=== PATIENT | female | born 1965 | race African-American/Black ===

== ENCOUNTER 2018-01-29 16:20 | Inpatient (IN) ==
[2018-01-29] MEDS ORDERED: SODIUM CHLORIDE 0.9% 1,000 ML IV STA (16:25)
[2018-01-29 17:01] LABS: Basophils % 0.3 % (0.0-0.8); Eosinophils % 0.3 % (0.00-10.9); Hemoglobin 13.1 GM/DL (12.0-16.0); Immature Granulocytes % 0.8 %; Immature Granulocytes Absolute 0.06 #; Lymphocytes # 1.4 10*3/uL (1.4-4.0); Lymphocytes % 17.6 % (21.3-54.2); Mean Corpuscular HGB Conc 33.6 GM/DL (32-36); Mean Corpuscular Hemoglobin 29 PG (27-34); Mean Corpuscular Volume 86.9 FL (87-102); Mean Platelet Volume 9.3 FL (9.6-12.0); Monocytes # 0.5 10*3/uL (0.11-0.8); Monocytes % 6.6 % (1.7-12.7); Neutrophils # 5.7 10*3/uL (1.4-7.4); Neutrophils % 74.4 % (38.7-73.9); Platelet Count 313 T/CUMM (130-400); Red Blood Count 4.49 MC/CUMM (3.8-5.5); Red Cell Distribution Width 12.7 % (9.3-17.3); White Blood Count 7.7 T/CUMM (4-12)
[2018-01-29 17:07] LABS: PT Patient Result 10.3 SECS; Partial Thromboplastin Time 24.7 SECS (0-40)
[2018-01-29] MEDS: DEXTROSE 5% NACL 0.45% 1,000 ML IV SCH (17:14)
[2018-01-29 17:15] LABS: Apearance,Urine CLEAR (Clear); Bacteria,Urine Occasional /HPF (Few); Barbiturates Screen,Urine Negative (Negative); Benzodiazepines Screen,Urine Negative (Negative); Bilirubin,Urine Negative (Negative); Blood, Urine Negative (Negative); Cannabinoid Screen,Urine Negative (Negative); Glucose,Urine (UA) Negative (Negative); Hyaline Casts,Urine 3 /LPF (0-3); Ketones,Urine Negative (Negative); Nitrite,Urine Negative (Negative); Opiate Screen,Urine Negative (Negative); Phencyclidine Screen,Urine Negative (Negative); Protein,Urine Negative; RBC,Urine 1 /HPF (0-4); Urine Color Yellow (Yellow); Urine Specific Gravity 1.009 (1.001-1.035); Urine Urobilinogen < 2.0 EU/DL (0.2-1.0); WBC,Urine 1 /HPF (0-6)
[2018-01-29 17:20] LABS: Alanine Aminotransferase 27 U/L (13-56); Alkaline Phosphatase 57 U/L (45-117); Aspartate Amino Transferase 30 U/L (0-37); Bilirubin,Total < 0.39 MG/DL (0.2-1.0); Blood Urea Nitrogen 16 MG/DL (7-18); Calcium 9.8 MG/DL (8.5-10.1); Glucose 140 MG/DL (74-106); Osmolality,Calculated 279.5 MOS/KG (273-304); Potassium 4.6 MMOL/L (3.5-5.1); Sodium 139 MMOL/L (136-145); Total Protein 7.2 G/DL (6.4-8.3)
[2018-01-29 18:52] LABS: Risk Ratio 1.88; Thyroid Stimulating Hormone 1.58 uIU/ml (0.358-3.74)
[2018-01-29] MEDS ORDERED: ALBUTEROL 2.5 MG/3 ML NEB RESP TX PRN (18:52)
[2018-01-29] MEDS ORDERED: PROMETHAZINE 25 MG TABLET PO PRN (18:52)
[2018-01-29] MEDS ORDERED: ACETAMINOPHEN 650 MG SUPP RECTAL PRN (18:52)
[2018-01-29] MEDS ORDERED: ALBUTEROL/IPRATROPIUM 3 ML NEB RESP TX PRN (18:52)
[2018-01-29] MEDS ORDERED: DEXTROSE 50% 25 GM/50 ML VIAL IV PRN (19:19)
[2018-01-29] MEDS ORDERED: ASPIRIN 300 MG SUPP RECTAL STA (19:20)
[2018-01-29] MEDS: PANTOPRAZOLE 40 MG VIAL IV SCH (20:57)
[2018-01-29] MEDS: ATORVASTATIN 40 MG TABLET PO SCH (20:57)
[2018-01-29] MEDS: hydrALAZINE 20 MG/1 ML VIAL IV PRN (21:01)
[2018-01-30 05:22] LABS: Basophils % 0.3 % (0.0-0.8); Eosinophils % 0.4 % (0.00-10.9); Hematocrit 33.7 VOL% (35.7-47.0); Hemoglobin 11.3 GM/DL (12.0-16.0); Immature Granulocytes % 0.8 %; Immature Granulocytes Absolute 0.06 #; Lymphocytes # 1.3 10*3/uL (1.4-4.0); Lymphocytes % 18.5 % (21.3-54.2); Mean Corpuscular HGB Conc 33.5 GM/DL (32-36); Mean Corpuscular Hemoglobin 29 PG (27-34); Mean Corpuscular Volume 85.8 FL (87-102); Mean Platelet Volume 10.2 FL (9.6-12.0); Monocytes # 0.5 10*3/uL (0.11-0.8); Monocytes % 7.6 % (1.7-12.7); Neutrophils # 5.1 10*3/uL (1.4-7.4); Neutrophils % 72.4 % (38.7-73.9); Platelet Count 278 T/CUMM (130-400); Red Blood Count 3.93 MC/CUMM (3.8-5.5); Red Cell Distribution Width 12.9 % (9.3-17.3); White Blood Count 7.1 T/CUMM (4-12)
[2018-01-30] MEDS: DEXTROSE 5% NACL 0.45% 1,000 ML IV SCH ×3 (05:40→23:32)
[2018-01-30 05:48] LABS: Eosinophils 1 % (0-10); Hypochromasia 1+; Lymphocytes 18 % (20-55); Segmented Neutrophils 70 % (50-85); Total Cells Counted 100
[2018-01-30 05:49] LABS: Microcytosis 1+; Platelet Estimate Normal
[2018-01-30 06:05] LABS: Alanine Aminotransferase 26 U/L (13-56); Albumin 2.4 G/DL (3.4-5.0); Alkaline Phosphatase 48 U/L (45-117); Aspartate Amino Transferase 29 U/L (0-37); Bilirubin,Total < 0.39 MG/DL (0.2-1.0); Blood Urea Nitrogen 14 MG/DL (7-18); Calcium 8.9 MG/DL (8.5-10.1); Glucose 128 MG/DL (74-106); Osmolality,Calculated 279.5 MOS/KG (273-304); Potassium 4.4 MMOL/L (3.5-5.1); Sodium 139 MMOL/L (136-145); Total Protein 5.9 G/DL (6.4-8.3)
[2018-01-30] MEDS: ERYTHROMYCIN 0.5% OPHT OINT 3.5 GM TUBE LEFT EYE SCH ×5 (07:16→21:00)
[2018-01-30] MEDS ORDERED: ASPIRIN 300 MG SUPP RECTAL SCH (09:00)
[2018-01-30] MEDS: ASPIRIN CHEW 81 MG TABLET PO SCH (10:39)
[2018-01-30] MEDS ORDERED: MAGNESIUM SULF RIDER 4 GM in PREMIX 1 EACH IV ONE (14:34)
[2018-01-30] MEDS: PANTOPRAZOLE 40 MG VIAL IV SCH (20:55)
[2018-01-30] MEDS: ATORVASTATIN 40 MG TABLET PO SCH (20:55)
[2018-01-31 03:59] LABS: Basophils % 0.5 % (0.0-0.8); Eosinophils # 0.2 10*3/uL (0.0-0.87); Eosinophils % 2.8 % (0.00-10.9); Hematocrit 32.6 VOL% (35.7-47.0); Hemoglobin 10.7 GM/DL (12.0-16.0); Immature Granulocytes % 0.5 %; Immature Granulocytes Absolute 0.03 #; Lymphocytes # 1.5 10*3/uL (1.4-4.0); Lymphocytes % 23.5 % (21.3-54.2); Mean Corpuscular HGB Conc 32.8 GM/DL (32-36); Mean Corpuscular Hemoglobin 29 PG (27-34); Mean Corpuscular Volume 88.1 FL (87-102); Mean Platelet Volume 9.5 FL (9.6-12.0); Monocytes # 0.6 10*3/uL (0.11-0.8); Monocytes % 9.4 % (1.7-12.7); Neutrophils # 4.1 10*3/uL (1.4-7.4); Neutrophils % 63.3 % (38.7-73.9); Platelet Count 241 T/CUMM (130-400); White Blood Count 6.5 T/CUMM (4-12)
[2018-01-31 04:18] LABS: Calcium 8.9 MG/DL (8.5-10.1); Osmolality,Calculated 279.5 MOS/KG (273-304); Potassium 4.2 MMOL/L (3.5-5.1)
[2018-01-31] MEDS: ASPIRIN CHEW 81 MG TABLET PO SCH (09:00)
[2018-01-31] MEDS: ERYTHROMYCIN 0.5% OPHT OINT 3.5 GM TUBE LEFT EYE SCH ×4 (09:02→22:10)
[2018-01-31] MEDS: DEXTROSE 5% NACL 0.45% 1,000 ML IV SCH ×2 (11:34→22:09)
[2018-01-31 11:47] LABS: Thyroglob. AB < 1.8 IU/mL (<4.0)
[2018-01-31 17:21] LABS: Glucose,CSF 87 MG/DL (40-70)
[2018-01-31 17:49] LABS: Lymphocytes,CSF 100 %
[2018-01-31 17:50] LABS: Appearance,CSF Clear; Red Blood Cell,CSF 5 C/CUMM; White Blood Cell,CSF 2 C/CUMM
[2018-01-31] MEDS ORDERED: DIVALPROEX 500 MG TABLET PO SCH (21:00)
[2018-01-31] MEDS: ATORVASTATIN 40 MG TABLET PO SCH (22:10)
[2018-01-31] MEDS: PANTOPRAZOLE 40 MG VIAL IV SCH (22:10)
[2018-01-31] MEDS: hydrALAZINE 20 MG/1 ML VIAL IV PRN (23:54)
[2018-02-01 04:00] LABS: Basophils % 0.5 % (0.0-0.8); Eosinophils # 0.1 10*3/uL (0.0-0.87); Eosinophils % 2.4 % (0.00-10.9); Hematocrit 32.4 VOL% (35.7-47.0); Hemoglobin 10.7 GM/DL (12.0-16.0); Immature Granulocytes % 0.3 %; Immature Granulocytes Absolute 0.02 #; Lymphocytes # 1.6 10*3/uL (1.4-4.0); Lymphocytes % 27.1 % (21.3-54.2); Mean Corpuscular Hemoglobin 28 PG (27-34); Mean Corpuscular Volume 85.9 FL (87-102); Mean Platelet Volume 10.8 FL (9.6-12.0); Monocytes # 0.5 10*3/uL (0.11-0.8); Neutrophils # 3.6 10*3/uL (1.4-7.4); Neutrophils % 60.7 % (38.7-73.9); Red Blood Count 3.77 MC/CUMM (3.8-5.5); Red Cell Distribution Width 12.7 % (9.3-17.3); White Blood Count 5.9 T/CUMM (4-12)
[2018-02-01] MEDS: DEXTROSE 5% NACL 0.45% 1,000 ML IV SCH ×2 (04:01→18:14)
[2018-02-01 04:09] LABS: Platelet Count 179 T/CUMM (130-400)
[2018-02-01 04:47] LABS: Albumin 2.4 G/DL (3.4-5.0); Bilirubin,Total 0.5 MG/DL (0.2-1.0); Calcium 9.2 MG/DL (8.5-10.1); Osmolality,Calculated 281.3 MOS/KG (273-304); Potassium 4.2 MMOL/L (3.5-5.1); Total Protein 5.8 G/DL (6.4-8.3)
[2018-02-01 05:00] LABS: Platelet Estimate Normal
[2018-02-01 05:01] LABS: Hypochromasia Slight; Ovalocytes Few
[2018-02-01] MEDS: ERYTHROMYCIN 0.5% OPHT OINT 3.5 GM TUBE LEFT EYE SCH ×4 (09:40→20:28)
[2018-02-01] MEDS: VALPROIC ACID 250 MG/5 ML UDCUP PO SCH ×2 (09:40→20:28)
[2018-02-01] MEDS: ASPIRIN CHEW 81 MG TABLET PO SCH (09:40)
[2018-02-01] MEDS: ATORVASTATIN 40 MG TABLET PO SCH (20:28)
[2018-02-01] MEDS: PANTOPRAZOLE 40 MG VIAL IV SCH (20:29)
[2018-02-02] MEDS: DEXTROSE 5% NACL 0.45% 1,000 ML IV SCH ×2 (00:47→17:15)
[2018-02-02] MEDS ORDERED: LABETALOL 100 MG/20 ML VIAL IV ONE (07:38)
[2018-02-02] MEDS ORDERED: LORazepam 2 MG/1 ML VIAL IV PRN (07:38)
[2018-02-02] MEDS: VALPROIC ACID 250 MG/5 ML UDCUP PO SCH ×2 (08:13→20:11)
[2018-02-02] MEDS: ASPIRIN CHEW 81 MG TABLET PO SCH (08:13)
[2018-02-02] MEDS: ERYTHROMYCIN 0.5% OPHT OINT 3.5 GM TUBE LEFT EYE SCH ×4 (08:14→20:12)
[2018-02-02] MEDS: MORPHINE 4 MG/1 ML VIAL IV PRN ×2 (09:18→17:56)
[2018-02-02] MEDS: PANTOPRAZOLE 40 MG VIAL IV SCH (20:11)
[2018-02-02] MEDS: ATORVASTATIN 40 MG TABLET PO SCH (20:11)
[2018-02-03 03:53] LABS: Basophils % 0.2 % (0.0-0.8); Eosinophils # 0.3 10*3/uL (0.0-0.87); Eosinophils % 3.1 % (0.00-10.9); Hematocrit 32.4 VOL% (35.7-47.0); Hemoglobin 10.3 GM/DL (12.0-16.0); Immature Granulocytes % 0.2 %; Immature Granulocytes Absolute 0.02 #; Lymphocytes # 1.3 10*3/uL (1.4-4.0); Lymphocytes % 16.1 % (21.3-54.2); Mean Corpuscular HGB Conc 31.8 GM/DL (32-36); Mean Corpuscular Hemoglobin 28 PG (27-34); Mean Corpuscular Volume 89.3 FL (87-102); Mean Platelet Volume 9.8 FL (9.6-12.0); Monocytes # 0.8 10*3/uL (0.11-0.8); Monocytes % 9.9 % (1.7-12.7); Neutrophils # 5.7 10*3/uL (1.4-7.4); Neutrophils % 70.5 % (38.7-73.9); Platelet Count 212 T/CUMM (130-400); Red Blood Count 3.63 MC/CUMM (3.8-5.5); Red Cell Distribution Width 12.9 % (9.3-17.3); White Blood Count 8.1 T/CUMM (4-12)
[2018-02-03 04:33] LABS: Calcium 9.3 MG/DL (8.5-10.1); Osmolality,Calculated 285.5 MOS/KG (273-304); Potassium 4.5 MMOL/L (3.5-5.1); Prealbumin 21.8 MG/DL (20-40)
[2018-02-03] MEDS: MORPHINE 4 MG/1 ML VIAL IV PRN (05:35)
[2018-02-03] MEDS: ASPIRIN CHEW 81 MG TABLET PO SCH (09:18)
[2018-02-03] MEDS: VALPROIC ACID 250 MG/5 ML UDCUP PO SCH ×2 (09:18→21:03)
[2018-02-03] MEDS: ERYTHROMYCIN 0.5% OPHT OINT 3.5 GM TUBE LEFT EYE SCH ×4 (09:19→21:04)
[2018-02-03] MEDS: PANTOPRAZOLE 40 MG VIAL IV SCH (21:03)
[2018-02-03] MEDS: ATORVASTATIN 40 MG TABLET PO SCH (21:04)
[2018-02-04] MEDS: hydrALAZINE 20 MG/1 ML VIAL IV PRN (00:14)
[2018-02-04] MEDS: MORPHINE 4 MG/1 ML VIAL IV PRN (00:39)
[2018-02-04] MEDS: VALPROIC ACID 250 MG/5 ML UDCUP PO SCH ×2 (08:40→20:59)
[2018-02-04] MEDS: ASPIRIN CHEW 81 MG TABLET PO SCH (08:40)
[2018-02-04] MEDS: ERYTHROMYCIN 0.5% OPHT OINT 3.5 GM TUBE LEFT EYE SCH ×4 (08:41→21:10)
[2018-02-04] MEDS ORDERED: FAMOTIDINE 8 MG/ML 50 ML/BOTTLE PER TUBE SCH (12:30)
[2018-02-04] MEDS: RANITIDINE 150 MG/10 ML 30 ML BOTTLE PER TUBE SCH ×2 (12:56→21:01)
[2018-02-04] MEDS: cloNIDine 0.1 MG TABLET PER TUBE PRN ×2 (16:03→20:59)
[2018-02-04] MEDS: ATORVASTATIN 40 MG TABLET PO SCH (21:02)
[2018-02-05 05:30] LABS: Basophils % 0.3 % (0.0-0.8); Eosinophils # 0.2 10*3/uL (0.0-0.87); Eosinophils % 3.2 % (0.00-10.9); Hematocrit 32.1 VOL% (35.7-47.0); Hemoglobin 10.9 GM/DL (12.0-16.0); Immature Granulocytes % 0.7 %; Immature Granulocytes Absolute 0.05 #; Lymphocytes # 1.2 10*3/uL (1.4-4.0); Lymphocytes % 15.5 % (21.3-54.2); Mean Corpuscular Hemoglobin 29 PG (27-34); Mean Corpuscular Volume 86.1 FL (87-102); Mean Platelet Volume 10.3 FL (9.6-12.0); Monocytes # 0.9 10*3/uL (0.11-0.8); Monocytes % 11.9 % (1.7-12.7); Neutrophils # 5.1 10*3/uL (1.4-7.4); Neutrophils % 68.4 % (38.7-73.9); Platelet Count 218 T/CUMM (130-400); Red Blood Count 3.73 MC/CUMM (3.8-5.5); Red Cell Distribution Width 12.6 % (9.3-17.3); White Blood Count 7.5 T/CUMM (4-12)
[2018-02-05 06:02] LABS: Calcium 9.6 MG/DL (8.5-10.1); Osmolality,Calculated 284.8 MOS/KG (273-304); Potassium 4.4 MMOL/L (3.5-5.1)
[2018-02-05] MEDS: RANITIDINE 150 MG/10 ML 30 ML BOTTLE PER TUBE SCH ×2 (09:18→20:54)
[2018-02-05] MEDS: VALPROIC ACID 250 MG/5 ML UDCUP PO SCH ×2 (09:18→20:55)
[2018-02-05] MEDS: ASPIRIN CHEW 81 MG TABLET PO SCH (09:18)
[2018-02-05] MEDS: amLODIPine 10 MG TABLET PO SCH (09:18)
[2018-02-05] MEDS: ERYTHROMYCIN 0.5% OPHT OINT 3.5 GM TUBE LEFT EYE SCH ×4 (09:19→20:54)
[2018-02-05 13:06] LABS: VDRL Spinal Fluid Negative (Negative)
[2018-02-05] MEDS: ATORVASTATIN 40 MG TABLET PO SCH (20:55)
[2018-02-06 07:27] LABS: Calcium 9.7 MG/DL (8.5-10.1); Osmolality,Calculated 288.4 MOS/KG (273-304); Potassium 3.8 MMOL/L (3.5-5.1)
[2018-02-06] MEDS: VALPROIC ACID 250 MG/5 ML UDCUP PO SCH ×2 (10:26→20:06)
[2018-02-06] MEDS: amLODIPine 10 MG TABLET PO SCH (10:26)
[2018-02-06] MEDS: ASPIRIN CHEW 81 MG TABLET PO SCH (10:27)
[2018-02-06] MEDS: RANITIDINE 150 MG/10 ML 30 ML BOTTLE PER TUBE SCH ×2 (10:27→20:07)
[2018-02-06] MEDS: ERYTHROMYCIN 0.5% OPHT OINT 3.5 GM TUBE LEFT EYE SCH ×4 (10:27→20:06)
[2018-02-06] MEDS: cloNIDine 0.1 MG TABLET PER TUBE PRN (20:06)
[2018-02-06] MEDS: ATORVASTATIN 40 MG TABLET PO SCH (20:06)
[2018-02-07 05:14] LABS: Basophils % 0.3 % (0.0-0.8); Eosinophils # 0.3 10*3/uL (0.0-0.87); Hematocrit 35.4 VOL% (35.7-47.0); Hemoglobin 11.7 GM/DL (12.0-16.0); Immature Granulocytes % 0.9 %; Immature Granulocytes Absolute 0.08 #; Lymphocytes # 1.3 10*3/uL (1.4-4.0); Lymphocytes % 14.9 % (21.3-54.2); Mean Corpuscular HGB Conc 33.1 GM/DL (32-36); Mean Corpuscular Hemoglobin 28 PG (27-34); Mean Corpuscular Volume 85.9 FL (87-102); Mean Platelet Volume 10.1 FL (9.6-12.0); Monocytes # 1.1 10*3/uL (0.11-0.8); Monocytes % 12.2 % (1.7-12.7); Neutrophils # 6.2 10*3/uL (1.4-7.4); Neutrophils % 68.7 % (38.7-73.9); Platelet Count 257 T/CUMM (130-400); Red Blood Count 4.12 MC/CUMM (3.8-5.5); Red Cell Distribution Width 12.5 % (9.3-17.3)
[2018-02-07 05:25] LABS: PT Patient Result 10.9 SECS
[2018-02-07] MEDS ORDERED: ceFAZolin 1,000 MG in SYRINGE 1 EACH IV ONE (07:00)
[2018-02-07] MEDS ORDERED: ETOMIDATE 20 MG/10 ML VIAL IV ONE (10:00)
[2018-02-07] MEDS ORDERED: PROPOFOL 200 MG/20 ML VIAL IV ONE (10:00)
[2018-02-07] MEDS ORDERED: ONDANSETRON 4 MG/2 ML VIAL ONE (10:00)
[2018-02-07] MEDS ORDERED: LIDOCAINE 2% 5 ML VIAL ONE (10:00)
[2018-02-07] MEDS: RANITIDINE 150 MG/10 ML 30 ML BOTTLE PER TUBE SCH ×2 (10:34→20:28)
[2018-02-07] MEDS: amLODIPine 10 MG TABLET PO SCH (10:34)
[2018-02-07] MEDS: ASPIRIN CHEW 81 MG TABLET PO SCH (10:34)
[2018-02-07] MEDS: VALPROIC ACID 250 MG/5 ML UDCUP PO SCH ×2 (10:34→20:27)
[2018-02-07] MEDS: ERYTHROMYCIN 0.5% OPHT OINT 3.5 GM TUBE LEFT EYE SCH ×4 (10:38→20:28)
[2018-02-07] MEDS: ATORVASTATIN 40 MG TABLET PO SCH (20:28)
[2018-02-08] MEDS: ASPIRIN CHEW 81 MG TABLET PO SCH (09:44)
[2018-02-08] MEDS: VALPROIC ACID 250 MG/5 ML UDCUP PO SCH ×2 (09:45→20:47)
[2018-02-08] MEDS: RANITIDINE 150 MG/10 ML 30 ML BOTTLE PER TUBE SCH ×2 (09:45→20:47)
[2018-02-08] MEDS: amLODIPine 10 MG TABLET PO SCH (09:45)
[2018-02-08] MEDS: ERYTHROMYCIN 0.5% OPHT OINT 3.5 GM TUBE LEFT EYE SCH ×4 (09:45→20:47)
[2018-02-08] MEDS: ATORVASTATIN 40 MG TABLET PO SCH (20:47)
[2018-02-09] MEDS ORDERED: DEXTROSE 50% 25 GM/50 ML VIAL IV PRN (08:25)
[2018-02-09] MEDS ORDERED: GLUCAGON 1 MG VIAL IM PRN (08:25)
[2018-02-09] MEDS: cloNIDine 0.1 MG TABLET PER TUBE PRN (09:39)
[2018-02-09] MEDS: ERYTHROMYCIN 0.5% OPHT OINT 3.5 GM TUBE LEFT EYE SCH ×4 (09:40→20:30)
[2018-02-09] MEDS: VALPROIC ACID 250 MG/5 ML UDCUP PO SCH ×2 (09:40→20:30)
[2018-02-09] MEDS: ASPIRIN CHEW 81 MG TABLET PO SCH (09:40)
[2018-02-09] MEDS: amLODIPine 10 MG TABLET PO SCH (09:40)
[2018-02-09] MEDS: RANITIDINE 150 MG/10 ML 30 ML BOTTLE PER TUBE SCH ×2 (13:18→20:32)
[2018-02-09] MEDS: ATORVASTATIN 40 MG TABLET PO SCH (20:31)
[2018-02-10 05:46] LABS: Prealbumin 19.2 MG/DL (20-40)
[2018-02-10] MEDS: VALPROIC ACID 250 MG/5 ML UDCUP PO SCH ×2 (08:22→20:18)
[2018-02-10] MEDS: RANITIDINE 150 MG/10 ML 30 ML BOTTLE PER TUBE SCH ×2 (08:23→20:21)
[2018-02-10] MEDS: ASPIRIN CHEW 81 MG TABLET PO SCH (08:23)
[2018-02-10] MEDS: amLODIPine 10 MG TABLET PO SCH (08:23)
[2018-02-10] MEDS: ERYTHROMYCIN 0.5% OPHT OINT 3.5 GM TUBE LEFT EYE SCH ×4 (08:24→20:21)
[2018-02-10] MEDS ORDERED: TUBERCULIN SKIN TEST 0.1 ML SYRINGE INTRADERM ONE (12:42)
[2018-02-10] MEDS: INSULIN REGULAR 100 UNIT/ML SUBCUT SCH ×2 (12:48→18:18)
[2018-02-10] MEDS: ZINC OXIDE PASTE 113 GM TUBE TOP SCH ×2 (18:22→20:21)
[2018-02-10] MEDS: ATORVASTATIN 40 MG TABLET PO SCH (20:20)
[2018-02-10 20:26] LABS: West Nile Virus Ab, IgG, CSF Negative (Negative); West Nile Virus Ab, IgM, CSF Negative (Negative)
[2018-02-11] MEDS: INSULIN REGULAR 100 UNIT/ML SUBCUT SCH ×4 (00:43→18:01)
[2018-02-11] MEDS: VALPROIC ACID 250 MG/5 ML UDCUP PO SCH ×2 (09:13→20:26)
[2018-02-11] MEDS: ZINC OXIDE PASTE 113 GM TUBE TOP SCH ×2 (09:13→20:26)
[2018-02-11] MEDS: ASPIRIN CHEW 81 MG TABLET PO SCH (09:13)
[2018-02-11] MEDS: amLODIPine 10 MG TABLET PO SCH (09:13)
[2018-02-11] MEDS: RANITIDINE 150 MG/10 ML 30 ML BOTTLE PER TUBE SCH ×2 (09:13→20:30)
[2018-02-11] MEDS: ERYTHROMYCIN 0.5% OPHT OINT 3.5 GM TUBE LEFT EYE SCH ×4 (09:14→20:27)
[2018-02-11] MEDS: metFORMIN 500 MG TABLET PO SCH (18:02)
[2018-02-11] MEDS: ATORVASTATIN 40 MG TABLET PO SCH (20:26)
[2018-02-12] MEDS: INSULIN REGULAR 100 UNIT/ML SUBCUT SCH ×4 (00:21→17:03)
[2018-02-12] MEDS: ASPIRIN CHEW 81 MG TABLET PO SCH (08:56)
[2018-02-12] MEDS: VALPROIC ACID 250 MG/5 ML UDCUP PO SCH ×2 (08:57→20:37)
[2018-02-12] MEDS: ZINC OXIDE PASTE 113 GM TUBE TOP SCH ×2 (08:57→20:37)
[2018-02-12] MEDS: metFORMIN 500 MG TABLET PO SCH ×2 (08:57→17:03)
[2018-02-12] MEDS: ERYTHROMYCIN 0.5% OPHT OINT 3.5 GM TUBE LEFT EYE SCH ×4 (08:57→20:37)
[2018-02-12] MEDS: amLODIPine 10 MG TABLET PO SCH (08:57)
[2018-02-12] MEDS: RANITIDINE 150 MG/10 ML 30 ML BOTTLE PER TUBE SCH ×2 (08:57→21:40)
[2018-02-12] MEDS: ATORVASTATIN 40 MG TABLET PO SCH (20:37)
[2018-02-12] MEDS: cloNIDine 0.1 MG TABLET PER TUBE PRN (21:40)
[2018-02-13] MEDS: INSULIN REGULAR 100 UNIT/ML SUBCUT SCH ×4 (01:47→19:05)
[2018-02-13 06:09] LABS: Basophils # 0.1 10*3/uL (0.0-0.2); Basophils % 0.6 % (0.0-0.8); Eosinophils # 0.3 10*3/uL (0.0-0.87); Eosinophils % 2.2 % (0.00-10.9); Hematocrit 36.8 VOL% (35.7-47.0); Hemoglobin 11.6 GM/DL (12.0-16.0); Immature Granulocytes % 4.4 %; Immature Granulocytes Absolute 0.49 #; Lymphocytes % 17.5 % (21.3-54.2); Mean Corpuscular HGB Conc 31.5 GM/DL (32-36); Mean Corpuscular Hemoglobin 29 PG (27-34); Mean Corpuscular Volume 90.9 FL (87-102); Mean Platelet Volume 10.7 FL (9.6-12.0); Monocytes # 1.1 10*3/uL (0.11-0.8); Monocytes % 9.9 % (1.7-12.7); Neutrophils # 7.4 10*3/uL (1.4-7.4); Neutrophils % 65.4 % (38.7-73.9); Platelet Count 256 T/CUMM (130-400); Red Blood Count 4.05 MC/CUMM (3.8-5.5); Red Cell Distribution Width 12.1 % (9.3-17.3); White Blood Count 11.2 T/CUMM (4-12)
[2018-02-13 06:37] LABS: Calcium 9.7 MG/DL (8.5-10.1); Osmolality,Calculated 311.8 MOS/KG (273-304); Potassium 4.7 MMOL/L (3.5-5.1)
[2018-02-13] MEDS: VALPROIC ACID 250 MG/5 ML UDCUP PO SCH ×2 (09:55→21:25)
[2018-02-13] MEDS: amLODIPine 10 MG TABLET PO SCH (09:55)
[2018-02-13] MEDS: ASPIRIN CHEW 81 MG TABLET PO SCH (09:55)
[2018-02-13] MEDS: ZINC OXIDE PASTE 113 GM TUBE TOP SCH ×2 (09:56→21:26)
[2018-02-13] MEDS: metFORMIN 500 MG TABLET PO SCH ×2 (09:56→18:15)
[2018-02-13] MEDS: ERYTHROMYCIN 0.5% OPHT OINT 3.5 GM TUBE LEFT EYE SCH ×4 (09:57→21:25)
[2018-02-13] MEDS: RANITIDINE 150 MG/10 ML 30 ML BOTTLE PER TUBE SCH ×2 (09:58→21:25)
[2018-02-13] MEDS: DESITIN 4OZ/NYSTATIN 15 GRAM MIXTURE PASTE TOP SCH ×2 (14:17→21:25)
[2018-02-13] MEDS: ATORVASTATIN 40 MG TABLET PO SCH (21:25)
[2018-02-14] MEDS: INSULIN REGULAR 100 UNIT/ML SUBCUT SCH ×4 (02:04→17:48)
[2018-02-14 06:04] LABS: Calcium 9.5 MG/DL (8.5-10.1); Osmolality,Calculated 321.8 MOS/KG (273-304); Potassium 5.2 MMOL/L (3.5-5.1)
[2018-02-14] MEDS ORDERED: INSULIN GLARGINE 100 UNIT/ML SUBCUT SCH (09:00)
[2018-02-14] MEDS: DESITIN 4OZ/NYSTATIN 15 GRAM MIXTURE PASTE TOP SCH ×2 (10:25→21:07)
[2018-02-14] MEDS: ERYTHROMYCIN 0.5% OPHT OINT 3.5 GM TUBE LEFT EYE SCH ×4 (10:26→21:06)
[2018-02-14] MEDS: RANITIDINE 150 MG/10 ML 30 ML BOTTLE PER TUBE SCH ×2 (10:26→21:07)
[2018-02-14] MEDS: ASPIRIN CHEW 81 MG TABLET PO SCH (10:26)
[2018-02-14] MEDS: amLODIPine 10 MG TABLET PO SCH (10:27)
[2018-02-14] MEDS: VALPROIC ACID 250 MG/5 ML UDCUP PO SCH ×2 (10:27→21:06)
[2018-02-14] MEDS: metFORMIN 500 MG TABLET PO SCH ×2 (10:27→17:48)
[2018-02-14] MEDS: ZINC OXIDE PASTE 113 GM TUBE TOP SCH ×2 (10:27→23:22)
[2018-02-14] MEDS: ATORVASTATIN 40 MG TABLET PO SCH (21:06)
[2018-02-15] MEDS: INSULIN REGULAR 100 UNIT/ML SUBCUT SCH ×4 (01:23→18:24)
[2018-02-15 06:39] LABS: Calcium 10.1 MG/DL (8.5-10.1); Osmolality,Calculated 318.7 MOS/KG (273-304)
[2018-02-15] MEDS: INSULIN GLARGINE 100 UNIT/ML SUBCUT SCH (12:16)
[2018-02-15] MEDS: VALPROIC ACID 250 MG/5 ML UDCUP PO SCH ×2 (12:16→20:28)
[2018-02-15] MEDS: ASPIRIN CHEW 81 MG TABLET PO SCH (12:16)
[2018-02-15] MEDS: amLODIPine 10 MG TABLET PO SCH (12:16)
[2018-02-15] MEDS: metFORMIN 500 MG TABLET PO SCH ×2 (12:17→18:23)
[2018-02-15] MEDS: DESITIN 4OZ/NYSTATIN 15 GRAM MIXTURE PASTE TOP SCH ×2 (12:21→20:28)
[2018-02-15] MEDS: ERYTHROMYCIN 0.5% OPHT OINT 3.5 GM TUBE LEFT EYE SCH ×4 (12:21→20:29)
[2018-02-15] MEDS: RANITIDINE 150 MG/10 ML 30 ML BOTTLE PER TUBE SCH ×2 (12:22→20:28)
[2018-02-15] MEDS: ZINC OXIDE PASTE 113 GM TUBE TOP SCH ×2 (15:12→20:28)
[2018-02-15] MEDS: ATORVASTATIN 40 MG TABLET PO SCH (20:28)
[2018-02-16] MEDS: INSULIN REGULAR 100 UNIT/ML SUBCUT SCH ×4 (00:03→19:12)
[2018-02-16 04:17] LABS: Basophils # 0.1 10*3/uL (0.0-0.2); Basophils % 0.6 % (0.0-0.8); Eosinophils # 0.3 10*3/uL (0.0-0.87); Eosinophils % 1.9 % (0.00-10.9); Hematocrit 34.6 VOL% (35.7-47.0); Hemoglobin 11.1 GM/DL (12.0-16.0); Immature Granulocytes % 3.8 %; Lymphocytes # 2.2 10*3/uL (1.4-4.0); Lymphocytes % 16.6 % (21.3-54.2); Mean Corpuscular HGB Conc 32.1 GM/DL (32-36); Mean Corpuscular Hemoglobin 29 PG (27-34); Mean Corpuscular Volume 88.7 FL (87-102); Mean Platelet Volume 10.9 FL (9.6-12.0); Monocytes # 1.4 10*3/uL (0.11-0.8); Monocytes % 10.9 % (1.7-12.7); Neutrophils # 8.7 10*3/uL (1.4-7.4); Neutrophils % 66.2 % (38.7-73.9); Platelet Count 343 T/CUMM (130-400); Red Cell Distribution Width 12.6 % (9.3-17.3); White Blood Count 13.2 T/CUMM (4-12)
[2018-02-16] MEDS: ASPIRIN CHEW 81 MG TABLET PO SCH (09:47)
[2018-02-16] MEDS: INSULIN GLARGINE 100 UNIT/ML SUBCUT SCH (09:47)
[2018-02-16] MEDS: amLODIPine 10 MG TABLET PO SCH (09:48)
[2018-02-16] MEDS: RANITIDINE 150 MG/10 ML 30 ML BOTTLE PER TUBE SCH ×2 (09:48→20:44)
[2018-02-16] MEDS: DESITIN 4OZ/NYSTATIN 15 GRAM MIXTURE PASTE TOP SCH ×2 (09:48→20:44)
[2018-02-16] MEDS: ERYTHROMYCIN 0.5% OPHT OINT 3.5 GM TUBE LEFT EYE SCH ×3 (09:48→20:44)
[2018-02-16] MEDS: VALPROIC ACID 250 MG/5 ML UDCUP PO SCH ×2 (09:48→20:45)
[2018-02-16] MEDS: metFORMIN 500 MG TABLET PO SCH (09:48)
[2018-02-16] MEDS: ZINC OXIDE PASTE 113 GM TUBE TOP SCH ×2 (09:49→20:44)
[2018-02-16] MEDS: ATORVASTATIN 40 MG TABLET PO SCH (20:45)
[2018-02-17] MEDS: INSULIN REGULAR 100 UNIT/ML SUBCUT SCH ×4 (00:17→18:07)
[2018-02-17 05:40] LABS: Calcium 9.9 MG/DL (8.5-10.1); Osmolality,Calculated 314.1 MOS/KG (273-304); Potassium 4.8 MMOL/L (3.5-5.1)
[2018-02-17] MEDS: ZINC OXIDE PASTE 113 GM TUBE TOP SCH ×2 (08:30→20:21)
[2018-02-17] MEDS: ERYTHROMYCIN 0.5% OPHT OINT 3.5 GM TUBE LEFT EYE SCH ×4 (08:30→20:21)
[2018-02-17] MEDS: INSULIN GLARGINE 100 UNIT/ML SUBCUT SCH (08:31)
[2018-02-17] MEDS: DESITIN 4OZ/NYSTATIN 15 GRAM MIXTURE PASTE TOP SCH ×2 (08:31→20:19)
[2018-02-17] MEDS: amLODIPine 10 MG TABLET PO SCH (08:31)
[2018-02-17] MEDS: VALPROIC ACID 250 MG/5 ML UDCUP PO SCH ×2 (08:31→20:19)
[2018-02-17] MEDS: ASPIRIN CHEW 81 MG TABLET PO SCH (08:31)
[2018-02-17] MEDS: RANITIDINE 150 MG/10 ML 30 ML BOTTLE PER TUBE SCH ×2 (08:32→20:20)
[2018-02-17] MEDS: ATORVASTATIN 40 MG TABLET PO SCH (20:19)
[2018-02-18] MEDS: INSULIN REGULAR 100 UNIT/ML SUBCUT SCH ×4 (00:22→17:57)
[2018-02-18 05:15] LABS: Basophils # 0.1 10*3/uL (0.0-0.2); Basophils % 0.5 % (0.0-0.8); Eosinophils # 0.2 10*3/uL (0.0-0.87); Eosinophils % 1.5 % (0.00-10.9); Hematocrit 32.2 VOL% (35.7-47.0); Hemoglobin 10.3 GM/DL (12.0-16.0); Immature Granulocytes % 4.2 %; Immature Granulocytes Absolute 0.49 #; Lymphocytes # 1.8 10*3/uL (1.4-4.0); Lymphocytes % 15.3 % (21.3-54.2); Mean Corpuscular Hemoglobin 29 PG (27-34); Mean Corpuscular Volume 91.2 FL (87-102); Mean Platelet Volume 11.1 FL (9.6-12.0); Monocytes # 1.3 10*3/uL (0.11-0.8); Monocytes % 11.5 % (1.7-12.7); Neutrophils # 7.8 10*3/uL (1.4-7.4); Platelet Count 376 T/CUMM (130-400); Red Blood Count 3.53 MC/CUMM (3.8-5.5); Red Cell Distribution Width 12.1 % (9.3-17.3); White Blood Count 11.7 T/CUMM (4-12)
[2018-02-18 05:44] LABS: Osmolality,Calculated 306.3 MOS/KG (273-304); Potassium 4.5 MMOL/L (3.5-5.1)
[2018-02-18] MEDS: ASPIRIN CHEW 81 MG TABLET PO SCH (08:53)
[2018-02-18] MEDS: ERYTHROMYCIN 0.5% OPHT OINT 3.5 GM TUBE LEFT EYE SCH ×4 (08:54→20:01)
[2018-02-18] MEDS: VALPROIC ACID 250 MG/5 ML UDCUP PO SCH ×2 (08:54→20:02)
[2018-02-18] MEDS: RANITIDINE 150 MG/10 ML 30 ML BOTTLE PER TUBE SCH ×2 (08:54→20:02)
[2018-02-18] MEDS: amLODIPine 10 MG TABLET PO SCH (08:54)
[2018-02-18] MEDS: DESITIN 4OZ/NYSTATIN 15 GRAM MIXTURE PASTE TOP SCH ×2 (08:55→20:02)
[2018-02-18] MEDS: INSULIN GLARGINE 100 UNIT/ML SUBCUT SCH (08:55)
[2018-02-18] MEDS: ZINC OXIDE PASTE 113 GM TUBE TOP SCH ×2 (08:56→20:01)
[2018-02-18] MEDS: cloNIDine 0.1 MG TABLET PER TUBE PRN (11:34)
[2018-02-18] MEDS: ATORVASTATIN 40 MG TABLET PO SCH (20:02)
[2018-02-19] MEDS: INSULIN REGULAR 100 UNIT/ML SUBCUT SCH ×4 (00:52→20:04)
[2018-02-19 06:12] LABS: Calcium 8.9 MG/DL (8.5-10.1); Osmolality,Calculated 303.4 MOS/KG (273-304); Potassium 4.6 MMOL/L (3.5-5.1)
[2018-02-19] MEDS: VALPROIC ACID 250 MG/5 ML UDCUP PO SCH ×2 (08:56→22:44)
[2018-02-19] MEDS: ASPIRIN CHEW 81 MG TABLET PO SCH (08:56)
[2018-02-19] MEDS: INSULIN GLARGINE 100 UNIT/ML SUBCUT SCH (08:56)
[2018-02-19] MEDS: amLODIPine 10 MG TABLET PO SCH (08:56)
[2018-02-19] MEDS: DESITIN 4OZ/NYSTATIN 15 GRAM MIXTURE PASTE TOP SCH ×2 (08:57→22:42)
[2018-02-19] MEDS: ZINC OXIDE PASTE 113 GM TUBE TOP SCH ×2 (08:57→22:42)
[2018-02-19] MEDS: RANITIDINE 150 MG/10 ML 30 ML BOTTLE PER TUBE SCH ×2 (08:57→22:41)
[2018-02-19] MEDS: ERYTHROMYCIN 0.5% OPHT OINT 3.5 GM TUBE LEFT EYE SCH ×3 (09:07→22:41)
[2018-02-19] MEDS: ATORVASTATIN 40 MG TABLET PO SCH (22:44)
[2018-02-20] MEDS: INSULIN REGULAR 100 UNIT/ML SUBCUT SCH ×4 (00:33→19:26)
[2018-02-20] MEDS: INSULIN GLARGINE 100 UNIT/ML SUBCUT SCH (09:55)
[2018-02-20] MEDS: ERYTHROMYCIN 0.5% OPHT OINT 3.5 GM TUBE LEFT EYE SCH ×4 (09:55→21:18)
[2018-02-20] MEDS: VALPROIC ACID 250 MG/5 ML UDCUP PO SCH ×2 (09:55→21:17)
[2018-02-20] MEDS: ASPIRIN CHEW 81 MG TABLET PO SCH (09:55)
[2018-02-20] MEDS: ZINC OXIDE PASTE 113 GM TUBE TOP SCH ×2 (09:55→21:17)
[2018-02-20] MEDS: amLODIPine 10 MG TABLET PO SCH (09:56)
[2018-02-20] MEDS: DESITIN 4OZ/NYSTATIN 15 GRAM MIXTURE PASTE TOP SCH ×2 (11:49→21:17)
[2018-02-20] MEDS: RANITIDINE 150 MG/10 ML 30 ML BOTTLE PER TUBE SCH ×2 (11:51→21:17)
[2018-02-20 11:57] LABS: Apearance,Urine CLOUDY (Clear); Bacteria,Urine Few /HPF (Few); Bilirubin,Urine Negative (Negative); Blood, Urine Moderate mg/dL (Negative); Glucose,Urine (UA) Negative (Negative); Ketones,Urine Negative (Negative); Mucus,Urine Occasional /LPF (Occasional); Nitrite,Urine Negative (Negative); Protein,Urine 30 MG/DL; Squamous Epithelial Cell,Urine Occasional /HPF (0-10); Urine Color Yellow (Yellow); Urine Specific Gravity 1.013 (1.001-1.035); WBC,Urine 70 /HPF (0-6)
[2018-02-20] MEDS: cefTRIAXone 1,000 MG in SYRINGE 1 EACH IV SCH (17:40)
[2018-02-20] MEDS: ATORVASTATIN 40 MG TABLET PO SCH (21:16)
[2018-02-21] MEDS: INSULIN REGULAR 100 UNIT/ML SUBCUT SCH ×4 (00:02→18:22)
[2018-02-21] MEDS: VALPROIC ACID 250 MG/5 ML UDCUP PO SCH ×2 (09:32→20:10)
[2018-02-21] MEDS: ERYTHROMYCIN 0.5% OPHT OINT 3.5 GM TUBE LEFT EYE SCH ×4 (09:33→20:11)
[2018-02-21] MEDS: INSULIN GLARGINE 100 UNIT/ML SUBCUT SCH (09:33)
[2018-02-21] MEDS: amLODIPine 10 MG TABLET PO SCH (09:33)
[2018-02-21] MEDS: ZINC OXIDE PASTE 113 GM TUBE TOP SCH ×2 (09:33→20:10)
[2018-02-21] MEDS: DESITIN 4OZ/NYSTATIN 15 GRAM MIXTURE PASTE TOP SCH ×2 (09:33→20:10)
[2018-02-21] MEDS: ASPIRIN CHEW 81 MG TABLET PO SCH (09:33)
[2018-02-21] MEDS: RANITIDINE 150 MG/10 ML 30 ML BOTTLE PER TUBE SCH ×2 (09:34→20:11)
[2018-02-21] MEDS: cefTRIAXone 1,000 MG in SYRINGE 1 EACH IV SCH (18:21)
[2018-02-21] MEDS: ATORVASTATIN 40 MG TABLET PO SCH (20:10)
[2018-02-22] MEDS: INSULIN REGULAR 100 UNIT/ML SUBCUT SCH ×4 (00:20→17:53)
[2018-02-22] MEDS: ASPIRIN CHEW 81 MG TABLET PO SCH (10:50)
[2018-02-22] MEDS: INSULIN GLARGINE 100 UNIT/ML SUBCUT SCH (10:50)
[2018-02-22] MEDS: amLODIPine 10 MG TABLET PO SCH (10:50)
[2018-02-22] MEDS: ERYTHROMYCIN 0.5% OPHT OINT 3.5 GM TUBE LEFT EYE SCH ×4 (10:51→20:42)
[2018-02-22] MEDS: ZINC OXIDE PASTE 113 GM TUBE TOP SCH ×2 (10:51→20:41)
[2018-02-22] MEDS: DESITIN 4OZ/NYSTATIN 15 GRAM MIXTURE PASTE TOP SCH ×2 (10:51→20:41)
[2018-02-22] MEDS: VALPROIC ACID 250 MG/5 ML UDCUP PO SCH ×2 (10:51→20:41)
[2018-02-22] MEDS: hydrALAZINE 25 MG TABLET PO SCH ×2 (10:55→20:41)
[2018-02-22] MEDS: CIPROFLOXACIN INJ 400 MG in PREMIX 1 EACH IV SCH (11:57)
[2018-02-22] MEDS: RANITIDINE 150 MG/10 ML 30 ML BOTTLE PER TUBE SCH ×2 (11:57→20:42)
[2018-02-22] MEDS: ATORVASTATIN 40 MG TABLET PO SCH (20:41)
[2018-02-23] MEDS: CIPROFLOXACIN INJ 400 MG in PREMIX 1 EACH IV SCH ×2 (00:09→14:26)
[2018-02-23] MEDS: INSULIN REGULAR 100 UNIT/ML SUBCUT SCH ×4 (00:09→19:09)
[2018-02-23 06:10] LABS: Basophils # 0.1 10*3/uL (0.0-0.2); Basophils % 0.6 % (0.0-0.8); Eosinophils # 0.2 10*3/uL (0.0-0.87); Eosinophils % 1.3 % (0.00-10.9); Hematocrit 33.5 VOL% (35.7-47.0); Hemoglobin 11.1 GM/DL (12.0-16.0); Immature Granulocytes % 3.5 %; Immature Granulocytes Absolute 0.44 #; Lymphocytes # 1.5 10*3/uL (1.4-4.0); Mean Corpuscular HGB Conc 33.1 GM/DL (32-36); Mean Corpuscular Hemoglobin 29 PG (27-34); Mean Corpuscular Volume 86.6 FL (87-102); Mean Platelet Volume 10.8 FL (9.6-12.0); Monocytes # 2.1 10*3/uL (0.11-0.8); Monocytes % 16.8 % (1.7-12.7); Neutrophils # 8.3 10*3/uL (1.4-7.4); Neutrophils % 65.8 % (38.7-73.9); Platelet Count 455 T/CUMM (130-400); Red Blood Count 3.87 MC/CUMM (3.8-5.5); Red Cell Distribution Width 12.4 % (9.3-17.3); White Blood Count 12.7 T/CUMM (4-12)
[2018-02-23 06:50] LABS: Albumin 2.3 G/DL (3.4-5.0); Bilirubin,Total 0.8 MG/DL (0.2-1.0); Calcium 9.4 MG/DL (8.5-10.1); Potassium 4.6 MMOL/L (3.5-5.1); Total Protein 7.9 G/DL (6.4-8.3)
[2018-02-23 07:25] LABS: Band Neutrophils 1 % (0-10); Eosinophils 1 % (0-10); Lymphocytes 9 % (20-55); Platelet Estimate Increased; Segmented Neutrophils 76 % (50-85); Total Cells Counted 100
[2018-02-23] MEDS: VALPROIC ACID 250 MG/5 ML UDCUP PO SCH ×2 (08:33→21:01)
[2018-02-23] MEDS: RANITIDINE 150 MG/10 ML 30 ML BOTTLE PER TUBE SCH ×2 (08:34→22:58)
[2018-02-23] MEDS: ASPIRIN CHEW 81 MG TABLET PO SCH (08:35)
[2018-02-23] MEDS: ZINC OXIDE PASTE 113 GM TUBE TOP SCH ×2 (08:35→21:02)
[2018-02-23] MEDS: ERYTHROMYCIN 0.5% OPHT OINT 3.5 GM TUBE LEFT EYE SCH ×4 (08:35→21:03)
[2018-02-23] MEDS: hydrALAZINE 25 MG TABLET PO SCH ×2 (08:35→21:02)
[2018-02-23] MEDS: DESITIN 4OZ/NYSTATIN 15 GRAM MIXTURE PASTE TOP SCH ×2 (08:35→21:02)
[2018-02-23] MEDS: INSULIN GLARGINE 100 UNIT/ML SUBCUT SCH ×2 (08:36→21:02)
[2018-02-23] MEDS: amLODIPine 10 MG TABLET PO SCH (08:36)
[2018-02-23] MEDS: ATORVASTATIN 40 MG TABLET PO SCH (21:01)
[2018-02-24] MEDS: INSULIN REGULAR 100 UNIT/ML SUBCUT SCH ×5 (00:32→23:29)
[2018-02-24] MEDS: CIPROFLOXACIN INJ 400 MG in PREMIX 1 EACH IV SCH ×3 (00:33→23:36)
[2018-02-24 07:17] LABS: Calcium 8.9 MG/DL (8.5-10.1); Osmolality,Calculated 286.2 MOS/KG (273-304); Potassium 4.7 MMOL/L (3.5-5.1); Prealbumin 15.5 MG/DL (20-40)
[2018-02-24] MEDS: amLODIPine 10 MG TABLET PO SCH (10:25)
[2018-02-24] MEDS: hydrALAZINE 25 MG TABLET PO SCH ×2 (10:25→20:40)
[2018-02-24] MEDS: ASPIRIN CHEW 81 MG TABLET PO SCH (10:25)
[2018-02-24] MEDS: VALPROIC ACID 250 MG/5 ML UDCUP PO SCH ×2 (10:25→20:40)
[2018-02-24] MEDS: INSULIN GLARGINE 100 UNIT/ML SUBCUT SCH ×2 (10:25→20:40)
[2018-02-24] MEDS: ZINC OXIDE PASTE 113 GM TUBE TOP SCH ×2 (10:26→20:40)
[2018-02-24] MEDS: ERYTHROMYCIN 0.5% OPHT OINT 3.5 GM TUBE LEFT EYE SCH ×4 (10:26→20:40)
[2018-02-24] MEDS: DESITIN 4OZ/NYSTATIN 15 GRAM MIXTURE PASTE TOP SCH ×2 (10:26→20:41)
[2018-02-24] MEDS: RANITIDINE 150 MG/10 ML 30 ML BOTTLE PER TUBE SCH ×2 (10:27→20:41)
[2018-02-24] MEDS: ATORVASTATIN 40 MG TABLET PO SCH (20:41)
[2018-02-25] MEDS: INSULIN REGULAR 100 UNIT/ML SUBCUT SCH ×3 (06:04→19:07)
[2018-02-25] MEDS: ASPIRIN CHEW 81 MG TABLET PO SCH (08:54)
[2018-02-25] MEDS: amLODIPine 10 MG TABLET PO SCH (08:55)
[2018-02-25] MEDS: hydrALAZINE 25 MG TABLET PO SCH ×2 (08:55→21:12)
[2018-02-25] MEDS: VALPROIC ACID 250 MG/5 ML UDCUP PO SCH ×2 (08:55→21:12)
[2018-02-25] MEDS: RANITIDINE 150 MG/10 ML 30 ML BOTTLE PER TUBE SCH ×2 (08:57→21:14)
[2018-02-25] MEDS: INSULIN GLARGINE 100 UNIT/ML SUBCUT SCH ×2 (10:01→21:13)
[2018-02-25] MEDS: ERYTHROMYCIN 0.5% OPHT OINT 3.5 GM TUBE LEFT EYE SCH ×3 (13:00→21:13)
[2018-02-25] MEDS: ZINC OXIDE PASTE 113 GM TUBE TOP SCH ×2 (13:00→21:12)
[2018-02-25] MEDS: DESITIN 4OZ/NYSTATIN 15 GRAM MIXTURE PASTE TOP SCH ×2 (13:02→21:13)
[2018-02-25] MEDS: CIPROFLOXACIN INJ 400 MG in PREMIX 1 EACH IV SCH ×2 (13:49→23:03)
[2018-02-25] MEDS: ATORVASTATIN 40 MG TABLET PO SCH (21:13)
[2018-02-26] MEDS: INSULIN REGULAR 100 UNIT/ML SUBCUT SCH ×3 (00:14→12:49)
[2018-02-26] MEDS ORDERED: ASPIRIN EC 81 MG TABLET PO SCH (09:00)
[2018-02-26] MEDS: amLODIPine 10 MG TABLET PO SCH (09:41)
[2018-02-26] MEDS: VALPROIC ACID 250 MG/5 ML UDCUP PO SCH (09:41)
[2018-02-26] MEDS: hydrALAZINE 25 MG TABLET PO SCH (09:41)
[2018-02-26] MEDS: INSULIN GLARGINE 100 UNIT/ML SUBCUT SCH (09:45)
[2018-02-26] MEDS: ERYTHROMYCIN 0.5% OPHT OINT 3.5 GM TUBE LEFT EYE SCH ×3 (09:55→12:52)
[2018-02-26] MEDS: RANITIDINE 150 MG/10 ML 30 ML BOTTLE PER TUBE SCH (09:55)
[2018-02-26 11:04] VITALS: BP 101/67
[2018-02-26] MEDS: CIPROFLOXACIN INJ 400 MG in PREMIX 1 EACH IV SCH (12:49)
[2018-02-26] MEDS: DESITIN 4OZ/NYSTATIN 15 GRAM MIXTURE PASTE TOP SCH (12:52)
[2018-02-26] MEDS: ZINC OXIDE PASTE 113 GM TUBE TOP SCH (12:52)
== END 2018-02-26 15:15 | DRG 420 ==
LOC: N.ED 16:20 → N.EDINP 18:26 → SUATTDRO 18:26 → N.CC 20:12 → N.4E 02-04 17:30
PROVIDERS: ADMIT Family Medicine; ATTEND Internal Medicine
PROC: EGDWPEG (ICD-10-PCS; 2018-02-07 12:35)

== ENCOUNTER 2018-03-31 01:01 | Inpatient (IN) ==
[2018-03-31] MEDS ORDERED: SODIUM CHLORIDE 0.9% 1,000 ML IV STA (01:48)
[2018-03-31 01:53] LABS: Mean Corpuscular HGB Conc 27.5 GM/DL (32-36)
[2018-03-31 01:58] LABS: INR 1.2
[2018-03-31 02:00] LABS: Basophils # 0.1 10*3/uL (0.0-0.2); Basophils % 0.6 % (0.0-0.8); Eosinophils % 0.2 % (0.00-10.9); Immature Granulocytes Absolute 0.14 #; Lymphocytes # 4.8 10*3/uL (1.4-4.0); Lymphocytes % 33.8 % (21.3-54.2); Mean Corpuscular Hemoglobin 28 PG (27-34); Mean Corpuscular Volume 102.8 FL (87-102); Mean Platelet Volume 11.3 FL (9.6-12.0); Monocytes # 1.5 10*3/uL (0.11-0.8); Monocytes % 10.9 % (1.7-12.7); NRBC # 0.07 10*3/uL; Neutrophils # 7.6 10*3/uL (1.4-7.4); Neutrophils % 53.5 % (38.7-73.9); Platelet Count 279 T/CUMM (130-400); Red Blood Count 3.18 MC/CUMM (3.8-5.5); Red Cell Distribution Width 19.7 % (9.3-17.3); White Blood Count 14.1 T/CUMM (4-12)
[2018-03-31 02:02] LABS: Hematocrit 32.7 VOL% (35.7-47.0)
[2018-03-31 02:12] LABS: Alanine Aminotransferase 60 U/L (13-56); Albumin 1.3 G/DL (3.4-5.0); Alkaline Phosphatase 117 U/L (45-117); Aspartate Amino Transferase 80 U/L (0-37); Bilirubin,Total < 0.39 MG/DL (0.2-1.0); Blood Urea Nitrogen 105 MG/DL (7-18); Calcium 8.8 MG/DL (8.5-10.1); Glucose 369 MG/DL (74-106); Potassium 5.2 MMOL/L (3.5-5.1); Sodium 143 MMOL/L (136-145); Total Protein 8.6 G/DL (6.4-8.3)
[2018-03-31 03:40] LABS: Apearance,Urine CLOUDY (Clear); Bacteria,Urine Occasional /HPF (Few); Bilirubin,Urine Negative (Negative); Blood, Urine Negative (Negative); Glucose,Urine (UA) Negative (Negative); Hyaline Casts,Urine 2 /LPF (0-3); Ketones,Urine 5 mg/dL (Negative); Nitrite,Urine Negative (Negative); Protein,Urine Negative; RBC,Urine 1 /HPF (0-4); Squamous Epithelial Cell,Urine Occasional /HPF (0-10); Urine Color Yellow (Yellow); Urine Specific Gravity 1.016 (1.001-1.035); Urine Urobilinogen < 2.0 EU/DL (0.2-1.0); WBC,Urine 11 /HPF (0-6)
[2018-03-31 03:53] LABS: Platelet Estimate Adequate; Polychromasia Few
[2018-03-31] MEDS ORDERED: cefTRIAXone 250 MG VIAL IV STA (04:02)
[2018-03-31] MEDS ORDERED: cefTRIAXone 1,000 MG VIAL ONE (04:04)
[2018-03-31] MEDS ORDERED: SODIUM CHLORIDE 0.9% 100 ML IV ONE (04:05)
[2018-03-31] MEDS ORDERED: ALBUTEROL 2.5 MG/3 ML NEB RESP TX PRN (06:08)
[2018-03-31] MEDS ORDERED: ONDANSETRON 4 MG/2 ML VIAL IV PRN (06:10)
[2018-03-31] MEDS ORDERED: LACTULOSE 20 GM/30 ML UDCUP PO PRN (06:10)
[2018-03-31] MEDS ORDERED: ACETAMINOPHEN 325 MG TABLET PO PRN (06:10)
[2018-03-31] MEDS ORDERED: DEXTROSE 50% 25 GM/50 ML VIAL IV PRN (06:17)
[2018-03-31] MEDS ORDERED: GLUCAGON 1 MG VIAL IM PRN (06:17)
[2018-03-31] MEDS ORDERED: ACETAMINOPHEN 325 MG TABLET PEG PRN (06:18)
[2018-03-31] MEDS ORDERED: ENOXAPARIN 40 MG/0.4 ML SYRINGE SUBCUT SCH (06:30)
[2018-03-31 07:16] LABS: Lactic Acid 2.1 MMOL/L (0.4-2.0)
[2018-03-31] MEDS: ALBUTEROL/IPRATROPIUM 3 ML NEB RESP TX SCH ×3 (08:30→19:25)
[2018-03-31] MEDS: SODIUM CHLORIDE 0.9% 1,000 ML IV SCH ×3 (08:50→21:33)
[2018-03-31] MEDS: PROPOFOL 1,000 MG/100 ML BOTTLE IV SCH ×2 (08:54→19:18)
[2018-03-31] MEDS: LEVOFLOXACIN INJ 750 MG in PREMIX 1 EACH IV SCH (09:08)
[2018-03-31] MEDS: ENOXAPARIN 30 MG/0.3 ML SYRINGE SUBCUT SCH (10:22)
[2018-03-31 10:44] LABS: Apearance,Urine CLOUDY (Clear); Bilirubin,Urine Negative (Negative); Blood, Urine Negative (Negative); Glucose,Urine (UA) Negative (Negative); Ketones,Urine 5 mg/dL (Negative); Mucus,Urine Occasional /LPF (Occasional); Nitrite,Urine Negative (Negative); Protein,Urine 30 MG/DL; RBC,Urine 1 /HPF (0-4); Urine Color Yellow (Yellow); Urine Specific Gravity 1.017 (1.001-1.035); WBC,Urine 7 /HPF (0-6)
[2018-03-31] MEDS ORDERED: ACETAMINOPHEN 650 MG SUPP RECTAL PRN (10:55)
[2018-03-31] MEDS ORDERED: ALBUTEROL/IPRATROPIUM 3 ML NEB RESP TX PRN (10:55)
[2018-03-31] MEDS ORDERED: SODIUM CHLORIDE 0.9% 1,000 ML IV ONE (11:31)
[2018-03-31] MEDS: PIPERACILLIN/TAZOBACTAM 3,375 MG in SODIUM CHLORIDE 0.9% 100 ML IV SCH ×2 (11:32→19:26)
[2018-03-31] MEDS: PHENYLEPHRINE DRIP 40 MG/250 ML PREMIX IV PRN (11:37)
[2018-03-31 12:35] LABS: Lactic Acid 3.1 MMOL/L (0.4-2.0)
[2018-03-31] MEDS ORDERED: MORPHINE 4 MG/1 ML VIAL IV PRN (12:37)
[2018-03-31] MEDS: INSULIN REGULAR 100 UNIT/ML SUBCUT SCH ×5 (12:44→23:52)
[2018-03-31] MEDS: VALPROIC ACID 250 MG/5 ML UDCUP PO SCH ×2 (12:50→21:06)
[2018-03-31] MEDS: RANITIDINE 150 MG/10 ML 30 ML BOTTLE PER TUBE SCH ×2 (12:51→21:07)
[2018-03-31] MEDS: LURASIDONE 40 MG TABLET PO SCH (18:24)
[2018-03-31] MEDS: INSULIN GLARGINE 100 UNIT/ML SUBCUT SCH (20:44)
[2018-03-31] MEDS: ZINC OXIDE PASTE 113 GM TUBE TOP SCH (21:04)
[2018-03-31] MEDS: SODIUM HYPOCHLORITE 0.25% IRRIG 473 ML BOTTLE TOP SCH (21:04)
[2018-04-01] MEDS: ALBUTEROL/IPRATROPIUM 3 ML NEB RESP TX SCH ×2 (01:56→07:06)
[2018-04-01] MEDS: PIPERACILLIN/TAZOBACTAM 3,375 MG in SODIUM CHLORIDE 0.9% 100 ML IV SCH ×3 (03:00→20:43)
[2018-04-01] MEDS: MORPHINE 4 MG/1 ML VIAL IV PRN (03:00)
[2018-04-01] MEDS: SODIUM CHLORIDE 0.9% 1,000 ML IV SCH ×6 (03:01→21:36)
[2018-04-01] MEDS: PHENYLEPHRINE DRIP 40 MG/250 ML PREMIX IV PRN (03:02)
[2018-04-01 04:46] LABS: Calcium 7.7 MG/DL (8.5-10.1); Osmolality,Calculated 336.6 MOS/KG (273-304); Potassium 5.2 MMOL/L (3.5-5.1)
[2018-04-01 04:49] LABS: Prealbumin 10.7 MG/DL (20-40)
[2018-04-01 05:03] LABS: Basophils % 0.1 % (0.0-0.8); Eosinophils % 0.2 % (0.00-10.9); Hematocrit 21.9 VOL% (35.7-47.0); Immature Granulocytes % 0.9 %; Immature Granulocytes Absolute 0.11 #; Lymphocytes # 1.3 10*3/uL (1.4-4.0); Lymphocytes % 10.8 % (21.3-54.2); Mean Corpuscular HGB Conc 26.5 GM/DL (32-36); Mean Corpuscular Hemoglobin 28 PG (27-34); Mean Corpuscular Volume 104.8 FL (87-102); Mean Platelet Volume 11.6 FL (9.6-12.0); Monocytes # 1.2 10*3/uL (0.11-0.8); Monocytes % 9.7 % (1.7-12.7); Neutrophils # 9.8 10*3/uL (1.4-7.4); Neutrophils % 78.3 % (38.7-73.9); Platelet Count 190 T/CUMM (130-400); Red Blood Count 2.09 MC/CUMM (3.8-5.5); White Blood Count 12.5 T/CUMM (4-12)
[2018-04-01 05:04] LABS: Hemoglobin 5.8 GM/DL (12.0-16.0)
[2018-04-01 05:07] LABS: Band Neutrophils 5 % (0-10); Hypochromasia 1+; Lymphocytes 13 % (20-55); Ovalocytes Slight; Platelet Estimate Adequate; Segmented Neutrophils 70 % (50-85); Total Cells Counted 100
[2018-04-01] MEDS ORDERED: SODIUM CHLORIDE 0.9% 1,000 ML IV PRN ×2 (05:17→05:20)
[2018-04-01 05:27] LABS: Folate 15.8 NG/ML (5.4-24.0)
[2018-04-01] MEDS: INSULIN REGULAR 100 UNIT/ML SUBCUT SCH ×3 (06:07→17:41)
[2018-04-01] MEDS: ENOXAPARIN 30 MG/0.3 ML SYRINGE SUBCUT SCH (08:02)
[2018-04-01] MEDS: ASPIRIN CHEW 81 MG TABLET PO SCH (08:03)
[2018-04-01] MEDS: BENZTROPINE 1 MG TABLET PO SCH (08:03)
[2018-04-01] MEDS: VALPROIC ACID 250 MG/5 ML UDCUP PO SCH ×2 (08:03→20:41)
[2018-04-01] MEDS: SODIUM HYPOCHLORITE 0.25% IRRIG 473 ML BOTTLE TOP SCH (08:04)
[2018-04-01] MEDS: ZINC OXIDE PASTE 113 GM TUBE TOP SCH ×2 (08:04→20:55)
[2018-04-01] MEDS: RANITIDINE 150 MG/10 ML 30 ML BOTTLE PER TUBE SCH ×3 (08:33→20:43)
[2018-04-01] MEDS: PANTOPRAZOLE 40 MG VIAL IV SCH (09:24)
[2018-04-01 10:30] LABS: ABG Base Excess -7.5 MMOL/L (-2.5-2.5); ABG HCO3 18.2 MMOL/L (20-26); ABG PH 7.364 (7.35-7.45); ABG TCO2 16.3 MMOL/L (23-27); Allen Test Positive; Pt O2 Delivery Device Ventilator
[2018-04-01] MEDS ORDERED: AMIODARONE INJ 150 MG in DEXTROSE 5% 100 ML IV ONE (14:55)
[2018-04-01] MEDS ORDERED: AMIODARONE 150 MG/3 ML VIAL ONE (14:55)
[2018-04-01] MEDS: PROPOFOL 1,000 MG/100 ML BOTTLE IV SCH ×2 (15:59→22:00)
[2018-04-01] MEDS: LURASIDONE 40 MG TABLET PO SCH (16:55)
[2018-04-01] MEDS: INSULIN GLARGINE 100 UNIT/ML SUBCUT SCH (20:42)
[2018-04-01 20:50] LABS: Hematocrit 31.7 VOL% (35.7-47.0)
[2018-04-01 20:56] LABS: Hemoglobin 9.1 GM/DL (12.0-16.0)
[2018-04-02] MEDS: INSULIN REGULAR 100 UNIT/ML SUBCUT SCH ×4 (01:11→17:36)
[2018-04-02] MEDS: MORPHINE 4 MG/1 ML VIAL IV PRN (02:31)
[2018-04-02] MEDS: SODIUM CHLORIDE 0.9% 1,000 ML IV SCH ×2 (03:27→06:04)
[2018-04-02 04:08] LABS: Basophils % 0.2 % (0.0-0.8); Eosinophils # 0.1 10*3/uL (0.0-0.87); Eosinophils % 0.5 % (0.00-10.9); Hemoglobin 9.8 GM/DL (12.0-16.0); Immature Granulocytes Absolute 0.12 #; Lymphocytes # 1.4 10*3/uL (1.4-4.0); Lymphocytes % 11.8 % (21.3-54.2); Mean Corpuscular HGB Conc 29.7 GM/DL (32-36); Mean Corpuscular Hemoglobin 29 PG (27-34); Mean Corpuscular Volume 98.2 FL (87-102); Mean Platelet Volume 11.2 FL (9.6-12.0); NRBC # 0.02 10*3/uL; Neutrophils % 77.5 % (38.7-73.9); Platelet Count 149 T/CUMM (130-400); Red Blood Count 3.36 MC/CUMM (3.8-5.5); Red Cell Distribution Width 18.3 % (9.3-17.3); White Blood Count 11.6 T/CUMM (4-12)
[2018-04-02 04:15] LABS: ABG Base Excess -8.2 MMOL/L (-2.5-2.5); ABG HCO3 15.7 MMOL/L (20-26); ABG Oxygen Saturation 98.7 % (95-100); ABG PCO2 27.4 MM HG (35-48); ABG PH 7.376 (7.35-7.45); ABG PO2 154.5 MM HG (80-95); ABG TCO2 16.5 MMOL/L (23-27)
[2018-04-02 04:24] LABS: Calcium 7.6 MG/DL (8.5-10.1); Osmolality,Calculated 338.9 MOS/KG (273-304); Potassium 4.5 MMOL/L (3.5-5.1)
[2018-04-02 04:34] LABS: Band Neutrophils 10 % (0-10); Lymphocytes 14 % (20-55); Platelet Estimate Adequate; Segmented Neutrophils 69 % (50-85); Total Cells Counted 100
[2018-04-02] MEDS: PIPERACILLIN/TAZOBACTAM 3,375 MG in SODIUM CHLORIDE 0.9% 100 ML IV SCH ×2 (05:32→14:27)
[2018-04-02] MEDS: ASPIRIN CHEW 81 MG TABLET PO SCH (09:06)
[2018-04-02] MEDS: BENZTROPINE 1 MG TABLET PO SCH (09:06)
[2018-04-02] MEDS: RANITIDINE 150 MG/10 ML 30 ML BOTTLE PER TUBE SCH ×2 (09:07→20:20)
[2018-04-02] MEDS: VALPROIC ACID 250 MG/5 ML UDCUP PO SCH ×2 (09:07→20:18)
[2018-04-02] MEDS: PANTOPRAZOLE 40 MG VIAL IV SCH (09:16)
[2018-04-02] MEDS: ZINC OXIDE PASTE 113 GM TUBE TOP SCH ×2 (11:24→20:19)
[2018-04-02] MEDS: SODIUM HYPOCHLORITE 0.25% IRRIG 473 ML BOTTLE TOP SCH (11:25)
[2018-04-02] MEDS: SODIUM CHLORIDE 0.45% 1,000 ML IV SCH ×2 (11:29→20:17)
[2018-04-02] MEDS: LEVOFLOXACIN INJ 750 MG in PREMIX 1 EACH IV SCH (11:31)
[2018-04-02] MEDS: glipiZIDE 5 MG TABLET PO SCH (11:36)
[2018-04-02] MEDS: PROPOFOL 1,000 MG/100 ML BOTTLE IV SCH (14:25)
[2018-04-02] MEDS: AMPICILLIN/SULBACTAM 1,500 MG in SODIUM CHLORIDE 0.9% 100 ML IV SCH ×2 (15:36→22:00)
[2018-04-02] MEDS: LURASIDONE 40 MG TABLET PO SCH (17:53)
[2018-04-02] MEDS: INSULIN GLARGINE 100 UNIT/ML SUBCUT SCH (20:17)
[2018-04-03] MEDS: INSULIN REGULAR 100 UNIT/ML SUBCUT SCH ×4 (03:11→17:45)
[2018-04-03] MEDS: SODIUM CHLORIDE 0.45% 1,000 ML IV SCH ×3 (03:11→19:31)
[2018-04-03] MEDS: PROPOFOL 1,000 MG/100 ML BOTTLE IV SCH (03:12)
[2018-04-03] MEDS: AMPICILLIN/SULBACTAM 1,500 MG in SODIUM CHLORIDE 0.9% 100 ML IV SCH ×4 (03:14→23:13)
[2018-04-03 03:43] LABS: ABG Base Excess -6.4 MMOL/L (-2.5-2.5); ABG HCO3 19.2 MMOL/L (20-26); ABG Oxygen Saturation 99.5 % (95-100); ABG PCO2 30.6 MM HG (35-48); ABG PH 7.375 (7.35-7.45); ABG TCO2 16.4 MMOL/L (23-27); Allen Test Positive; Pt O2 Delivery Device Ventilator
[2018-04-03 05:55] LABS: Calcium 7.6 MG/DL (8.5-10.1); Potassium 4.2 MMOL/L (3.5-5.1)
[2018-04-03 05:59] LABS: Prealbumin 10.9 MG/DL (20-40)
[2018-04-03 06:05] LABS: Basophils % 0.3 % (0.0-0.8); Eosinophils # 0.2 10*3/uL (0.0-0.87); Eosinophils % 1.4 % (0.00-10.9); Hematocrit 32.9 VOL% (35.7-47.0); Immature Granulocytes % 0.9 %; Lymphocytes # 1.4 10*3/uL (1.4-4.0); Lymphocytes % 13.4 % (21.3-54.2); Mean Corpuscular HGB Conc 29.2 GM/DL (32-36); Mean Corpuscular Hemoglobin 29 PG (27-34); Mean Corpuscular Volume 100.3 FL (87-102); Mean Platelet Volume 11.3 FL (9.6-12.0); Monocytes % 9.4 % (1.7-12.7); Neutrophils % 74.6 % (38.7-73.9); Platelet Count 127 T/CUMM (130-400); Red Blood Count 3.28 MC/CUMM (3.8-5.5); Red Cell Distribution Width 18.1 % (9.3-17.3); White Blood Count 10.8 T/CUMM (4-12)
[2018-04-03 06:07] LABS: Hemoglobin 9.6 GM/DL (12.0-16.0)
[2018-04-03 06:09] LABS: Eosinophils 2 % (0-10); Lymphocytes 14 % (20-55); Metamyelocytes 1 %; Segmented Neutrophils 79 % (50-85); Total Cells Counted 100
[2018-04-03 06:10] LABS: Platelet Estimate Decreased; Polychromasia Few
[2018-04-03] MEDS: ASPIRIN CHEW 81 MG TABLET PO SCH (09:13)
[2018-04-03] MEDS: glipiZIDE 5 MG TABLET PO SCH (09:13)
[2018-04-03] MEDS: RANITIDINE 150 MG/10 ML 30 ML BOTTLE PER TUBE SCH ×2 (09:14→22:00)
[2018-04-03] MEDS: BENZTROPINE 1 MG TABLET PO SCH (09:14)
[2018-04-03] MEDS: VALPROIC ACID 250 MG/5 ML UDCUP PO SCH ×2 (09:14→22:00)
[2018-04-03] MEDS: ZINC OXIDE PASTE 113 GM TUBE TOP SCH ×2 (09:15→23:12)
[2018-04-03] MEDS: PANTOPRAZOLE 40 MG VIAL IV SCH (09:17)
[2018-04-03] MEDS: LEVOFLOXACIN INJ 750 MG in PREMIX 1 EACH IV SCH (14:16)
[2018-04-03] MEDS: LURASIDONE 40 MG TABLET PO SCH (17:32)
[2018-04-03] MEDS: INSULIN GLARGINE 100 UNIT/ML SUBCUT SCH (22:00)
[2018-04-03] MEDS: SODIUM HYPOCHLORITE 0.25% IRRIG 473 ML BOTTLE TOP SCH (23:08)
[2018-04-04] MEDS: INSULIN REGULAR 100 UNIT/ML SUBCUT SCH ×4 (01:08→18:38)
[2018-04-04] MEDS: SODIUM CHLORIDE 0.45% 1,000 ML IV SCH ×2 (03:31→13:30)
[2018-04-04 03:46] LABS: ABG Base Excess -7.1 MMOL/L (-2.5-2.5); ABG HCO3 18.7 MMOL/L (20-26); ABG Oxygen Saturation 99.6 % (95-100); ABG PCO2 30.2 MM HG (35-48); ABG PH 7.366 (7.35-7.45); ABG TCO2 15.7 MMOL/L (23-27)
[2018-04-04] MEDS: AMPICILLIN/SULBACTAM 1,500 MG in SODIUM CHLORIDE 0.9% 100 ML IV SCH ×4 (04:00→21:00)
[2018-04-04 05:48] LABS: Calcium 7.7 MG/DL (8.5-10.1); Osmolality,Calculated 311.3 MOS/KG (273-304); Potassium 4.1 MMOL/L (3.5-5.1)
[2018-04-04 05:59] LABS: Basophils % 0.1 % (0.0-0.8); Eosinophils # 0.1 10*3/uL (0.0-0.87); Eosinophils % 1.2 % (0.00-10.9); Hematocrit 33.2 VOL% (35.7-47.0); Immature Granulocytes % 1.6 %; Immature Granulocytes Absolute 0.14 #; Lymphocytes # 1.6 10*3/uL (1.4-4.0); Lymphocytes % 18.3 % (21.3-54.2); Mean Corpuscular HGB Conc 28.9 GM/DL (32-36); Mean Corpuscular Hemoglobin 29 PG (27-34); Mean Corpuscular Volume 99.4 FL (87-102); Mean Platelet Volume 11.2 FL (9.6-12.0); Monocytes # 1.1 10*3/uL (0.11-0.8); Monocytes % 12.6 % (1.7-12.7); Neutrophils # 5.9 10*3/uL (1.4-7.4); Neutrophils % 66.2 % (38.7-73.9); Platelet Count 118 T/CUMM (130-400); Red Blood Count 3.34 MC/CUMM (3.8-5.5); Red Cell Distribution Width 17.2 % (9.3-17.3); White Blood Count 8.9 T/CUMM (4-12)
[2018-04-04 06:01] LABS: Hemoglobin 9.6 GM/DL (12.0-16.0)
[2018-04-04] MEDS: NYSTATIN 500,000 UNIT/5 ML UDCUP SWISH/SWAL SCH ×5 (06:15→20:44)
[2018-04-04] MEDS: ASPIRIN CHEW 81 MG TABLET PO SCH (09:03)
[2018-04-04] MEDS: PANTOPRAZOLE 40 MG VIAL IV SCH (09:03)
[2018-04-04] MEDS: glipiZIDE 5 MG TABLET PO SCH (09:03)
[2018-04-04] MEDS: BENZTROPINE 1 MG TABLET PO SCH (09:03)
[2018-04-04] MEDS: RANITIDINE 150 MG/10 ML 30 ML BOTTLE PER TUBE SCH ×2 (09:04→20:45)
[2018-04-04] MEDS: ZINC OXIDE PASTE 113 GM TUBE TOP SCH ×2 (09:05→20:45)
[2018-04-04] MEDS: SODIUM HYPOCHLORITE 0.25% IRRIG 473 ML BOTTLE TOP SCH (09:05)
[2018-04-04] MEDS: VALPROIC ACID 250 MG/5 ML UDCUP PO SCH ×2 (09:09→20:44)
[2018-04-04] MEDS: MORPHINE 4 MG/1 ML VIAL IV PRN ×2 (14:37→20:44)
[2018-04-04] MEDS: LEVOFLOXACIN INJ 750 MG in PREMIX 1 EACH IV SCH (15:14)
[2018-04-04] MEDS: LURASIDONE 40 MG TABLET PO SCH (16:24)
[2018-04-04] MEDS: PROPOFOL 1,000 MG/100 ML BOTTLE IV SCH (18:54)
[2018-04-04] MEDS: INSULIN GLARGINE 100 UNIT/ML SUBCUT SCH (20:45)
[2018-04-05] MEDS: INSULIN REGULAR 100 UNIT/ML SUBCUT SCH ×4 (00:31→17:57)
[2018-04-05] MEDS: AMPICILLIN/SULBACTAM 1,500 MG in SODIUM CHLORIDE 0.9% 100 ML IV SCH ×4 (03:54→21:42)
[2018-04-05 04:01] LABS: ABG Base Excess -5.4 MMOL/L (-2.5-2.5); ABG Oxygen Saturation 98.8 % (95-100); ABG PCO2 30.8 MM HG (35-48); ABG TCO2 16.8 MMOL/L (23-27); Allen Test Positive
[2018-04-05 05:03] LABS: Basophils % 0.3 % (0.0-0.8); Eosinophils # 0.1 10*3/uL (0.0-0.87); Eosinophils % 1.4 % (0.00-10.9); Immature Granulocytes % 2.6 %; Lymphocytes # 1.6 10*3/uL (1.4-4.0); Lymphocytes % 20.8 % (21.3-54.2); Mean Corpuscular Hemoglobin 29 PG (27-34); Mean Corpuscular Volume 98.3 FL (87-102); Mean Platelet Volume 11.1 FL (9.6-12.0); Monocytes # 1.3 10*3/uL (0.11-0.8); Monocytes % 16.2 % (1.7-12.7); Neutrophils # 4.5 10*3/uL (1.4-7.4); Neutrophils % 58.7 % (38.7-73.9); Platelet Count 120 T/CUMM (130-400); Red Blood Count 3.54 MC/CUMM (3.8-5.5); Red Cell Distribution Width 16.3 % (9.3-17.3); White Blood Count 7.7 T/CUMM (4-12)
[2018-04-05 05:10] LABS: Osmolality,Calculated 304.4 MOS/KG (273-304)
[2018-04-05 05:18] LABS: Hematocrit 34.5 VOL% (35.7-47.0); Hemoglobin 10.2 GM/DL (12.0-16.0)
[2018-04-05 07:15] LABS: Band Neutrophils 4 % (0-10); Lymphocytes 30 % (20-55); Macrocytosis 1+; Platelet Estimate Decreased; Segmented Neutrophils 57 % (50-85); Total Cells Counted 100
[2018-04-05] MEDS: NYSTATIN 500,000 UNIT/5 ML UDCUP SWISH/SWAL SCH ×4 (08:30→20:28)
[2018-04-05] MEDS: PANTOPRAZOLE 40 MG VIAL IV SCH (08:30)
[2018-04-05] MEDS: glipiZIDE 5 MG TABLET PO SCH (08:30)
[2018-04-05] MEDS: RANITIDINE 150 MG/10 ML 30 ML BOTTLE PER TUBE SCH ×2 (08:31→20:37)
[2018-04-05] MEDS: ASPIRIN CHEW 81 MG TABLET PO SCH (08:31)
[2018-04-05] MEDS: BENZTROPINE 1 MG TABLET PO SCH (08:31)
[2018-04-05] MEDS: SODIUM HYPOCHLORITE 0.25% IRRIG 473 ML BOTTLE TOP SCH (08:31)
[2018-04-05] MEDS: VALPROIC ACID 250 MG/5 ML UDCUP PO SCH ×2 (08:31→20:28)
[2018-04-05] MEDS: ZINC OXIDE PASTE 113 GM TUBE TOP SCH ×2 (08:32→20:28)
[2018-04-05] MEDS: LANSOPRAZOLE ODT 30 MG TABLET PEG SCH ×2 (08:48→20:27)
[2018-04-05] MEDS: METOPROLOL TARTRATE 50 MG TABLET PEG SCH ×2 (08:48→20:27)
[2018-04-05] MEDS: SODIUM CHLORIDE 0.45% 1,000 ML IV SCH (10:50)
[2018-04-05] MEDS: amLODIPine 10 MG TABLET PEG SCH (12:25)
[2018-04-05] MEDS: LEVOFLOXACIN INJ 750 MG in PREMIX 1 EACH IV SCH (12:26)
[2018-04-05] MEDS: LURASIDONE 40 MG TABLET PO SCH (17:58)
[2018-04-05] MEDS: INSULIN GLARGINE 100 UNIT/ML SUBCUT SCH (21:16)
[2018-04-06] MEDS: INSULIN REGULAR 100 UNIT/ML SUBCUT SCH ×5 (01:12→23:50)
[2018-04-06] MEDS: AMPICILLIN/SULBACTAM 1,500 MG in SODIUM CHLORIDE 0.9% 100 ML IV SCH ×4 (04:16→21:15)
[2018-04-06] MEDS: SODIUM CHLORIDE 0.45% 1,000 ML IV SCH (04:38)
[2018-04-06 05:11] LABS: Basophils % 0.2 % (0.0-0.8); Eosinophils # 0.1 10*3/uL (0.0-0.87); Eosinophils % 1.5 % (0.00-10.9); Hematocrit 32.5 VOL% (35.7-47.0); Hemoglobin 9.7 GM/DL (12.0-16.0); Immature Granulocytes % 3.6 %; Immature Granulocytes Absolute 0.29 #; Lymphocytes # 1.8 10*3/uL (1.4-4.0); Lymphocytes % 21.4 % (21.3-54.2); Mean Corpuscular HGB Conc 29.8 GM/DL (32-36); Mean Corpuscular Hemoglobin 29 PG (27-34); Mean Corpuscular Volume 95.9 FL (87-102); Mean Platelet Volume 10.3 FL (9.6-12.0); Monocytes # 1.2 10*3/uL (0.11-0.8); Monocytes % 14.8 % (1.7-12.7); Neutrophils # 4.8 10*3/uL (1.4-7.4); Neutrophils % 58.5 % (38.7-73.9); Platelet Count 121 T/CUMM (130-400); Red Blood Count 3.39 MC/CUMM (3.8-5.5); Red Cell Distribution Width 15.9 % (9.3-17.3); White Blood Count 8.2 T/CUMM (4-12)
[2018-04-06 05:37] LABS: Calcium 7.9 MG/DL (8.5-10.1); Potassium 4.3 MMOL/L (3.5-5.1)
[2018-04-06] MEDS: NYSTATIN 500,000 UNIT/5 ML UDCUP SWISH/SWAL SCH ×4 (09:44→20:34)
[2018-04-06] MEDS: ASPIRIN CHEW 81 MG TABLET PO SCH (09:44)
[2018-04-06] MEDS: LANSOPRAZOLE ODT 30 MG TABLET PEG SCH (09:44)
[2018-04-06] MEDS: glipiZIDE 5 MG TABLET PO SCH (09:44)
[2018-04-06] MEDS: BENZTROPINE 1 MG TABLET PO SCH (09:44)
[2018-04-06] MEDS: METOPROLOL TARTRATE 50 MG TABLET PEG SCH ×2 (09:44→20:34)
[2018-04-06] MEDS: SODIUM HYPOCHLORITE 0.25% IRRIG 473 ML BOTTLE TOP SCH (09:45)
[2018-04-06] MEDS: VALPROIC ACID 250 MG/5 ML UDCUP PO SCH ×2 (09:45→20:34)
[2018-04-06] MEDS: RANITIDINE 150 MG/10 ML 30 ML BOTTLE PER TUBE SCH ×2 (09:45→20:35)
[2018-04-06] MEDS: ZINC OXIDE PASTE 113 GM TUBE TOP SCH ×2 (09:45→20:34)
[2018-04-06] MEDS: amLODIPine 10 MG TABLET PEG SCH (12:15)
[2018-04-06] MEDS: CIPROFLOXACIN 100 MG/ML 100 ML/BOTTLE PO SCH ×2 (12:15→20:34)
[2018-04-06] MEDS: MORPHINE 4 MG/1 ML VIAL IV PRN (15:35)
[2018-04-06] MEDS: LURASIDONE 40 MG TABLET PO SCH (17:29)
[2018-04-06] MEDS: INSULIN GLARGINE 100 UNIT/ML SUBCUT SCH (20:34)
[2018-04-07] MEDS: AMPICILLIN/SULBACTAM 1,500 MG in SODIUM CHLORIDE 0.9% 100 ML IV SCH ×4 (05:02→23:06)
[2018-04-07 05:40] LABS: Basophils % 0.5 % (0.0-0.8); Eosinophils # 0.1 10*3/uL (0.0-0.87); Eosinophils % 1.5 % (0.00-10.9); Hematocrit 33.4 VOL% (35.7-47.0); Immature Granulocytes % 5.7 %; Lymphocytes # 1.8 10*3/uL (1.4-4.0); Lymphocytes % 20.8 % (21.3-54.2); Mean Corpuscular HGB Conc 29.9 GM/DL (32-36); Mean Corpuscular Hemoglobin 29 PG (27-34); Mean Corpuscular Volume 96.3 FL (87-102); Mean Platelet Volume 10.3 FL (9.6-12.0); Monocytes # 1.2 10*3/uL (0.11-0.8); Monocytes % 13.5 % (1.7-12.7); Neutrophils # 5.1 10*3/uL (1.4-7.4); Platelet Count 143 T/CUMM (130-400); Red Blood Count 3.47 MC/CUMM (3.8-5.5); Red Cell Distribution Width 15.7 % (9.3-17.3); White Blood Count 8.8 T/CUMM (4-12)
[2018-04-07 05:58] LABS: Calcium 8.2 MG/DL (8.5-10.1); Osmolality,Calculated 299.1 MOS/KG (273-304); Potassium 4.5 MMOL/L (3.5-5.1)
[2018-04-07 06:03] LABS: Band Neutrophils 4 % (0-10); Hypochromasia 1+; Lymphocytes 19 % (20-55); Metamyelocytes 2 %; Microcytosis Slight; Myelocytes 1 %; Segmented Neutrophils 64 % (50-85); Total Cells Counted 100
[2018-04-07 06:08] LABS: Prealbumin 14.2 MG/DL (20-40)
[2018-04-07] MEDS: INSULIN REGULAR 100 UNIT/ML SUBCUT SCH ×3 (06:10→17:41)
[2018-04-07] MEDS: NYSTATIN 500,000 UNIT/5 ML UDCUP SWISH/SWAL SCH ×4 (09:12→20:47)
[2018-04-07] MEDS: VALPROIC ACID 250 MG/5 ML UDCUP PO SCH ×2 (09:12→20:48)
[2018-04-07] MEDS: BENZTROPINE 1 MG TABLET PO SCH (09:13)
[2018-04-07] MEDS: glipiZIDE 5 MG TABLET PO SCH (09:13)
[2018-04-07] MEDS: ASPIRIN CHEW 81 MG TABLET PO SCH (09:13)
[2018-04-07] MEDS: amLODIPine 10 MG TABLET PEG SCH (09:14)
[2018-04-07] MEDS: METOPROLOL TARTRATE 50 MG TABLET PEG SCH ×2 (09:14→20:47)
[2018-04-07] MEDS: CIPROFLOXACIN 100 MG/ML 100 ML/BOTTLE PO SCH ×2 (09:29→20:48)
[2018-04-07] MEDS: RANITIDINE 150 MG/10 ML 30 ML BOTTLE PER TUBE SCH ×2 (09:29→20:48)
[2018-04-07] MEDS: ZINC OXIDE PASTE 113 GM TUBE TOP SCH ×2 (10:42→20:48)
[2018-04-07] MEDS: SODIUM HYPOCHLORITE 0.25% IRRIG 473 ML BOTTLE TOP SCH (10:43)
[2018-04-07] MEDS ORDERED: MAGNESIUM SULF RIDER 4 GM in PREMIX 1 EACH IV ONE (11:00)
[2018-04-07] MEDS: LURASIDONE 40 MG TABLET PO SCH (17:34)
[2018-04-07] MEDS: INSULIN GLARGINE 100 UNIT/ML SUBCUT SCH (20:47)
[2018-04-08] MEDS: INSULIN REGULAR 100 UNIT/ML SUBCUT SCH ×4 (01:15→18:26)
[2018-04-08] MEDS: AMPICILLIN/SULBACTAM 1,500 MG in SODIUM CHLORIDE 0.9% 100 ML IV SCH ×4 (03:44→22:40)
[2018-04-08 06:44] LABS: Calcium 7.9 MG/DL (8.5-10.1); Osmolality,Calculated 294.1 MOS/KG (273-304); Potassium 4.5 MMOL/L (3.5-5.1)
[2018-04-08] MEDS: CIPROFLOXACIN 100 MG/ML 100 ML/BOTTLE PO SCH ×2 (09:26→22:37)
[2018-04-08] MEDS: RANITIDINE 150 MG/10 ML 30 ML BOTTLE PER TUBE SCH (09:27)
[2018-04-08] MEDS: BENZTROPINE 1 MG TABLET PO SCH (09:27)
[2018-04-08] MEDS: ZINC OXIDE PASTE 113 GM TUBE TOP SCH ×2 (09:28→22:39)
[2018-04-08] MEDS: VALPROIC ACID 250 MG/5 ML UDCUP PO SCH ×2 (09:28→22:39)
[2018-04-08] MEDS: amLODIPine 10 MG TABLET PEG SCH (09:28)
[2018-04-08] MEDS: METOPROLOL TARTRATE 50 MG TABLET PEG SCH ×2 (09:28→22:39)
[2018-04-08] MEDS: glipiZIDE 5 MG TABLET PO SCH (09:28)
[2018-04-08] MEDS: NYSTATIN 500,000 UNIT/5 ML UDCUP SWISH/SWAL SCH ×4 (09:28→22:39)
[2018-04-08] MEDS: ASPIRIN CHEW 81 MG TABLET PO SCH (09:28)
[2018-04-08] MEDS ORDERED: SKIN HEALING OINT (AQUAPHOR) 50 GM TUBE TOP PRN (15:04)
[2018-04-08] MEDS: LURASIDONE 40 MG TABLET PO SCH (16:16)
[2018-04-08] MEDS: SODIUM HYPOCHLORITE 0.25% IRRIG 473 ML BOTTLE TOP SCH (16:16)
[2018-04-08] MEDS: INSULIN GLARGINE 100 UNIT/ML SUBCUT SCH (22:37)
[2018-04-09] MEDS: INSULIN REGULAR 100 UNIT/ML SUBCUT SCH ×5 (00:43→23:36)
[2018-04-09] MEDS: RANITIDINE 150 MG/10 ML 30 ML BOTTLE PER TUBE SCH ×3 (00:52→22:26)
[2018-04-09] MEDS: AMPICILLIN/SULBACTAM 1,500 MG in SODIUM CHLORIDE 0.9% 100 ML IV SCH ×4 (04:01→22:23)
[2018-04-09] MEDS: METOPROLOL TARTRATE 50 MG TABLET PEG SCH ×2 (08:03→22:24)
[2018-04-09] MEDS: glipiZIDE 5 MG TABLET PO SCH (08:03)
[2018-04-09] MEDS: SODIUM HYPOCHLORITE 0.25% IRRIG 473 ML BOTTLE TOP SCH (08:03)
[2018-04-09] MEDS: ASPIRIN CHEW 81 MG TABLET PO SCH (08:03)
[2018-04-09] MEDS: BENZTROPINE 1 MG TABLET PO SCH (08:03)
[2018-04-09] MEDS: NYSTATIN 500,000 UNIT/5 ML UDCUP SWISH/SWAL SCH ×4 (08:03→22:24)
[2018-04-09] MEDS: VALPROIC ACID 250 MG/5 ML UDCUP PO SCH ×2 (08:03→22:24)
[2018-04-09] MEDS: amLODIPine 10 MG TABLET PEG SCH (08:03)
[2018-04-09] MEDS: CIPROFLOXACIN 100 MG/ML 100 ML/BOTTLE PO SCH ×2 (08:04→22:28)
[2018-04-09] MEDS: ZINC OXIDE PASTE 113 GM TUBE TOP SCH ×2 (08:04→22:25)
[2018-04-09] MEDS: LURASIDONE 40 MG TABLET PO SCH (16:31)
[2018-04-09] MEDS: INSULIN GLARGINE 100 UNIT/ML SUBCUT SCH (22:24)
[2018-04-10] MEDS: AMPICILLIN/SULBACTAM 1,500 MG in SODIUM CHLORIDE 0.9% 100 ML IV SCH ×2 (03:50→09:06)
[2018-04-10] MEDS: INSULIN REGULAR 100 UNIT/ML SUBCUT SCH ×2 (06:08→11:02)
[2018-04-10] MEDS: NYSTATIN 500,000 UNIT/5 ML UDCUP SWISH/SWAL SCH (08:24)
[2018-04-10] MEDS: VALPROIC ACID 250 MG/5 ML UDCUP PO SCH (08:24)
[2018-04-10] MEDS: amLODIPine 10 MG TABLET PEG SCH (08:25)
[2018-04-10] MEDS: CIPROFLOXACIN 100 MG/ML 100 ML/BOTTLE PO SCH (08:25)
[2018-04-10] MEDS: SODIUM HYPOCHLORITE 0.25% IRRIG 473 ML BOTTLE TOP SCH (08:25)
[2018-04-10] MEDS: RANITIDINE 150 MG/10 ML 30 ML BOTTLE PER TUBE SCH (08:25)
[2018-04-10] MEDS: ZINC OXIDE PASTE 113 GM TUBE TOP SCH (08:25)
[2018-04-10] MEDS: METOPROLOL TARTRATE 50 MG TABLET PEG SCH (08:25)
[2018-04-10] MEDS: ASPIRIN CHEW 81 MG TABLET PO SCH (08:25)
[2018-04-10] MEDS: glipiZIDE 5 MG TABLET PO SCH (08:25)
[2018-04-10] MEDS: BENZTROPINE 1 MG TABLET PO SCH (08:25)
[2018-04-10 08:48] VITALS: BP 127/76
[2018-04-10 09:33] LABS: Apearance,Urine CLEAR (Clear); Bilirubin,Urine Negative (Negative); Blood, Urine Negative (Negative); Glucose,Urine (UA) Negative (Negative); Ketones,Urine Negative (Negative); Mucus,Urine Occasional /LPF (Occasional); Nitrite,Urine Negative (Negative); Protein,Urine Negative; RBC,Urine 6 /HPF (0-4); Urine Color Yellow (Yellow); Urine Urobilinogen < 2.0 EU/DL (0.2-1.0); WBC,Urine <1 /HPF (0-6)
== END 2018-04-10 11:30 | DRG 720 ==
LOC: EDUNIT# → EDBD → N.ED 01:01 → N.EDINP 05:32 → SUATTDRO 05:32 → N.5E 06:35 → N.CC 07:01 → N.5E 04-07 22:28
PROVIDERS: ADMIT Internal Medicine

== ENCOUNTER 2019-01-12 12:09 | Observation (INO) ==
[2019-01-12 15:02] LABS: Albumin 2.6 G/DL (3.4-5.0); Bilirubin,Total 0.5 MG/DL (0.2-1.0); Calcium 10.3 MG/DL (8.5-10.1); Osmolality,Calculated 318.3 MOS/KG (273-304); Total Protein 7.7 G/DL (6.4-8.3)
[2019-01-12 15:06] LABS: Basophils % 0.3 % (0.0-0.8); Eosinophils # 0.2 10*3/uL (0.0-0.87); Eosinophils % 3.1 % (0.00-10.9); Hematocrit 36.9 VOL% (35.7-47.0); Hemoglobin 10.7 GM/DL (12.0-16.0); Immature Granulocytes % 0.3 %; Immature Granulocytes Absolute 0.02 #; Lymphocytes # 1.8 10*3/uL (1.4-4.0); Lymphocytes % 23.3 % (21.3-54.2); Mean Corpuscular Volume 84.2 FL (87-102); Mean Platelet Volume 11.8 FL (9.6-12.0); Monocytes % 10.5 % (1.7-12.7); Neutrophils % 62.5 % (38.7-73.9); Platelet Count 92 T/CUMM (130-400); Red Blood Count 4.38 MC/CUMM (3.8-5.5); Red Cell Distribution Width 18.5 % (9.3-17.3); White Blood Count 7.6 T/CUMM (4-12)
[2019-01-12 15:16] LABS: Macrocytosis 1+; Microcytosis Slight; Platelet Estimate Decreased; Polychromasia 1+
[2019-01-12] MEDS ORDERED: GLUCAGON 1 MG VIAL ONE (15:52)
[2019-01-12] MEDS ORDERED: GLUCAGON 1 MG VIAL IM STA (15:55)
[2019-01-12] MEDS ORDERED: ACETAMINOPHEN 325 MG TABLET PEG PRN (17:08)
[2019-01-12] MEDS ORDERED: ALBUTEROL/IPRATROPIUM 3 ML NEB RESP TX PRN (17:11)
[2019-01-12] MEDS ORDERED: GLUCAGON 1 MG VIAL IM PRN (17:13)
[2019-01-12] MEDS ORDERED: ENOXAPARIN 40 MG/0.4 ML SYRINGE SUBCUT SCH (17:30)
[2019-01-12] MEDS: VALPROIC ACID 250 MG/5 ML UDCUP PEG SCH (21:18)
[2019-01-12] MEDS: ENOXAPARIN 40 MG/0.4 ML SYRINGE SUBCUT SCH (21:18)
[2019-01-12] MEDS: ARIPiprazole 10 MG TABLET PEG SCH (21:19)
[2019-01-12] MEDS: RANITIDINE 150 MG/10 ML 30 ML BOTTLE PEG SCH (21:19)
[2019-01-12] MEDS: ATORVASTATIN 40 MG TABLET PEG SCH (21:19)
[2019-01-12] MEDS: METOPROLOL TARTRATE 50 MG TABLET PEG SCH (21:19)
[2019-01-13 05:42] LABS: Calcium 10.3 MG/DL (8.5-10.1); Osmolality,Calculated 320.3 MOS/KG (273-304)
[2019-01-13] MEDS: VALPROIC ACID 250 MG/5 ML UDCUP PEG SCH ×2 (08:50→23:30)
[2019-01-13] MEDS: RANITIDINE 150 MG/10 ML 30 ML BOTTLE PEG SCH ×2 (08:50→23:33)
[2019-01-13] MEDS: ASPIRIN CHEW 81 MG TABLET PO SCH (08:51)
[2019-01-13] MEDS: amLODIPine 10 MG TABLET PEG SCH (08:51)
[2019-01-13] MEDS: METOPROLOL TARTRATE 50 MG TABLET PEG SCH ×2 (08:51→23:31)
[2019-01-13] MEDS: SODIUM CHLORIDE 0.45% 1,000 ML IV SCH ×2 (12:22→22:23)
[2019-01-13] MEDS ORDERED: MAGNESIUM SULF RIDER 4 GM in PREMIX 1 EACH IV PRN (15:16)
[2019-01-13] MEDS ORDERED: MAGNESIUM SULF RIDER 2 GM in PREMIX 1 EACH IV PRN (15:16)
[2019-01-13] MEDS: COLLAGENASE OINT 30 GM TUBE TOP SCH (17:35)
[2019-01-13] MEDS: ARIPiprazole 10 MG TABLET PEG SCH (23:30)
[2019-01-13] MEDS: ENOXAPARIN 40 MG/0.4 ML SYRINGE SUBCUT SCH (23:30)
[2019-01-13] MEDS: ATORVASTATIN 40 MG TABLET PEG SCH (23:31)
[2019-01-14 05:23] LABS: Calcium 9.8 MG/DL (8.5-10.1); Osmolality,Calculated 307.8 MOS/KG (273-304); Prealbumin 30.8 MG/DL (20-40)
[2019-01-14 07:32] LABS: Apearance,Urine Slightly Hazy (Clear); Bacteria,Urine Occasional /HPF (Few); Bilirubin,Urine Negative (Negative); Blood, Urine Large mg/dL (Negative); Glucose,Urine (UA) Negative (Negative); Ketones,Urine Negative (Negative); Mucus,Urine Occasional /LPF (Occasional); Nitrite,Urine Negative (Negative); Protein,Urine Negative; RBC,Urine 368 /HPF (0-4); Squamous Epithelial Cell,Urine Occasional /HPF (0-10); Transitional Epi Cells,Urine Occasional /HPF (<1); Urine Color Yellow (Yellow); Urine Specific Gravity 1.013 (1.001-1.035); Urine Urobilinogen < 2.0 EU/DL (0.2-1.0); WBC,Urine 46 /HPF (0-6)
[2019-01-14] MEDS: VALPROIC ACID 250 MG/5 ML UDCUP PEG SCH (09:37)
[2019-01-14] MEDS: amLODIPine 10 MG TABLET PEG SCH (09:41)
[2019-01-14] MEDS: METOPROLOL TARTRATE 50 MG TABLET PEG SCH (09:41)
[2019-01-14] MEDS: ASPIRIN CHEW 81 MG TABLET PO SCH (09:41)
[2019-01-14] MEDS ORDERED: DEXTROSE 50% 25 GM/50 ML VIAL IV PRN (11:27)
[2019-01-14] MEDS ORDERED: INSULIN LISPRO 100 UNIT/ML SUBCUT SCH (11:30)
[2019-01-14] MEDS: RANITIDINE 150 MG/10 ML 30 ML BOTTLE PEG SCH (14:55)
[2019-01-14] MEDS: COLLAGENASE OINT 30 GM TUBE TOP SCH (15:06)
[2019-01-14 16:40] VITALS: BP 139/77
== END 2019-01-14 19:30 | disposition home or self-care (01) ==
LOC: EDUNIT# → EDBD → N.ED 12:09 → N.EDINP 12:09 → SUATTDRO 16:22 → N.4E 16:53
PROVIDERS: ADMIT Internal Medicine; ATTEND Internal Medicine Nephrology

== ENCOUNTER 2019-02-24 15:27 | Inpatient (IN) ==
[2019-02-24] MEDS ORDERED: MORPHINE 4 MG/1 ML VIAL IV PRN (16:03)
[2019-02-24] MEDS ORDERED: ACETAMINOPHEN 325 MG TABLET PO PRN (16:03)
[2019-02-24] MEDS ORDERED: ONDANSETRON 4 MG/2 ML VIAL IV PRN (16:03)
[2019-02-24] MEDS ORDERED: MAGNESIUM HYDROXIDE SUSP 30 ML UDCUP PO PRN (16:03)
[2019-02-24] MEDS ORDERED: traMADol 50 MG TABLET PO PRN (16:03)
[2019-02-24] MEDS ORDERED: GLUCAGON 1 MG VIAL IM PRN (16:22)
[2019-02-24] MEDS ORDERED: DEXTROSE 50% 25 GM/50 ML VIAL IV PRN (16:22)
[2019-02-24] MEDS ORDERED: METOPROLOL SUCCINATE XL 25 MG TABLET PO ONE (17:20)
[2019-02-24] MEDS: SODIUM CHLORIDE 0.9% 1,000 ML IV SCH (18:42)
[2019-02-24] MEDS: CLINDAMYCIN INJ 300 MG in PREMIX 1 EACH IV SCH (18:47)
[2019-02-24 18:53] LABS: Basophils % 0.4 % (0.0-0.8); Eosinophils # 0.1 10*3/uL (0.0-0.87); Eosinophils % 0.8 % (0.00-10.9); Hematocrit 30.9 VOL% (35.7-47.0); Hemoglobin 9.4 GM/DL (12.0-16.0); Immature Granulocytes % 1.9 %; Immature Granulocytes Absolute 0.18 #; Lymphocytes # 1.9 10*3/uL (1.4-4.0); Mean Corpuscular HGB Conc 30.4 GM/DL (32-36); Mean Corpuscular Volume 85.6 FL (87-102); Mean Platelet Volume 9.8 FL (9.6-12.0); Monocytes % 7.3 % (1.7-12.7); Neutrophils % 69.6 % (38.7-73.9); Platelet Count 286 T/CUMM (130-400); Red Blood Count 3.61 MC/CUMM (3.8-5.5); Red Cell Distribution Width 16.8 % (9.3-17.3); White Blood Count 9.5 T/CUMM (4-12)
[2019-02-24 18:58] LABS: Apearance,Urine CLOUDY (Clear); Bacteria,Urine Many /HPF (Few); Bilirubin,Urine Negative (Negative); Blood, Urine Negative (Negative); Glucose,Urine (UA) 50 mg/dL (Negative); Ketones,Urine 5 mg/dL (Negative); Nitrite,Urine Negative (Negative); Protein,Urine 30 MG/DL; RBC,Urine 22 /HPF (0-4); Squamous Epithelial Cell,Urine Moderate /HPF (0-10); Urine Color Amber (Yellow); Urine Specific Gravity 1.018 (1.001-1.035); Urine Urobilinogen < 2.0 EU/DL (0.2-1.0); WBC,Urine 175 /HPF (0-6)
[2019-02-24] MEDS: INSULIN REGULAR 100 UNIT/ML SUBCUT SCH (19:00)
[2019-02-24 19:32] LABS: Albumin 1.9 G/DL (3.4-5.0); Bilirubin,Total 0.4 MG/DL (0.2-1.0); Calcium 9.8 MG/DL (8.5-10.1); Osmolality,Calculated 291.8 MOS/KG (273-304); Total Protein 8.2 G/DL (6.4-8.3)
[2019-02-24] MEDS: INSULIN GLARGINE 100 UNIT/ML SUBCUT SCH (20:42)
[2019-02-24] MEDS: QUEtiapine 25 MG TABLET PO SCH (20:43)
[2019-02-24] MEDS: VALPROIC ACID 250 MG/5 ML UDCUP PO SCH (20:43)
[2019-02-24] MEDS: DOCUSATE SODIUM 100 MG CAPSULE PO SCH (20:43)
[2019-02-25] MEDS: INSULIN REGULAR 100 UNIT/ML SUBCUT SCH ×4 (00:18→17:05)
[2019-02-25] MEDS: CLINDAMYCIN INJ 300 MG in PREMIX 1 EACH IV SCH ×3 (02:31→17:06)
[2019-02-25] MEDS: SODIUM CHLORIDE 0.9% 1,000 ML IV SCH ×2 (04:49→21:43)
[2019-02-25 05:11] LABS: Calcium 9.6 MG/DL (8.5-10.1)
[2019-02-25] MEDS ORDERED: ceFAZolin 1,000 MG in SYRINGE 1 EACH IV ONE (07:26)
[2019-02-25] MEDS ORDERED: BUPIVACAINE 0.25% /EPI 10 ML VIAL ONE (08:06)
[2019-02-25] MEDS ORDERED: LIDOCAINE 1% 20 ML VIAL ONE (08:07)
[2019-02-25] MEDS ORDERED: PANTOPRAZOLE 40 MG TABLET PO SCH (09:00)
[2019-02-25] MEDS: VALPROIC ACID 250 MG/5 ML UDCUP PO SCH ×2 (14:34→21:42)
[2019-02-25] MEDS: GLIMEPIRIDE 2 MG TABLET PO SCH (14:34)
[2019-02-25] MEDS: BENZTROPINE 1 MG TABLET PO SCH (14:34)
[2019-02-25] MEDS: DOCUSATE SODIUM 100 MG CAPSULE PO SCH ×2 (14:34→21:42)
[2019-02-25] MEDS: LANSOPRAZOLE ODT 30 MG TABLET PO SCH (14:42)
[2019-02-25] MEDS: INSULIN GLARGINE 100 UNIT/ML SUBCUT SCH (21:42)
[2019-02-25] MEDS: QUEtiapine 25 MG TABLET PO SCH (21:42)
[2019-02-26] MEDS: INSULIN REGULAR 100 UNIT/ML SUBCUT SCH ×4 (00:07→17:00)
[2019-02-26] MEDS: CLINDAMYCIN INJ 300 MG in PREMIX 1 EACH IV SCH ×3 (01:39→17:00)
[2019-02-26 04:43] LABS: Basophils % 0.2 % (0.0-0.8); Eosinophils # 0.2 10*3/uL (0.0-0.87); Eosinophils % 1.8 % (0.00-10.9); Hematocrit 27.1 VOL% (35.7-47.0); Hemoglobin 8.1 GM/DL (12.0-16.0); Immature Granulocytes % 3.6 %; Immature Granulocytes Absolute 0.31 #; Lymphocytes # 2.1 10*3/uL (1.4-4.0); Lymphocytes % 23.6 % (21.3-54.2); Mean Corpuscular HGB Conc 29.9 GM/DL (32-36); Mean Corpuscular Volume 85.8 FL (87-102); Mean Platelet Volume 9.6 FL (9.6-12.0); Monocytes % 7.3 % (1.7-12.7); Neutrophils % 63.5 % (38.7-73.9); Platelet Count 264 T/CUMM (130-400); Red Blood Count 3.16 MC/CUMM (3.8-5.5); Red Cell Distribution Width 16.8 % (9.3-17.3); White Blood Count 8.7 T/CUMM (4-12)
[2019-02-26 05:24] LABS: Calcium 9.4 MG/DL (8.5-10.1); Osmolality,Calculated 297.5 MOS/KG (273-304); Prealbumin 11.7 MG/DL (20-40)
[2019-02-26] MEDS: BENZTROPINE 1 MG TABLET PO SCH (09:09)
[2019-02-26] MEDS: DOCUSATE SODIUM 100 MG CAPSULE PO SCH ×2 (09:09→21:34)
[2019-02-26] MEDS: VALPROIC ACID 250 MG/5 ML UDCUP PO SCH ×2 (09:09→21:34)
[2019-02-26] MEDS: GLIMEPIRIDE 2 MG TABLET PO SCH (09:09)
[2019-02-26] MEDS: LANSOPRAZOLE ODT 30 MG TABLET PO SCH (09:10)
[2019-02-26] MEDS: COLLAGENASE OINT 30 GM TUBE TOP SCH (12:04)
[2019-02-26] MEDS: QUEtiapine 25 MG TABLET PO SCH (21:34)
[2019-02-26] MEDS: SODIUM CHLORIDE 0.9% 1,000 ML IV SCH ×2 (22:18→22:25)
[2019-02-26] MEDS: INSULIN GLARGINE 100 UNIT/ML SUBCUT SCH (22:18)
[2019-02-26] MEDS ORDERED: INSULIN GLARGINE 100 UNIT/ML SUBCUT SCH (22:26)
[2019-02-26] MEDS ORDERED: SODIUM CHLORIDE 0.9% 1,000 ML IV PRN (22:27)
[2019-02-27] MEDS: INSULIN REGULAR 100 UNIT/ML SUBCUT SCH ×3 (01:34→11:08)
[2019-02-27] MEDS: METOPROLOL TARTRATE 50 MG TABLET PEG SCH ×2 (01:35→08:10)
[2019-02-27] MEDS: CLINDAMYCIN INJ 300 MG in PREMIX 1 EACH IV SCH ×2 (03:22→09:13)
[2019-02-27] MEDS: GLIMEPIRIDE 2 MG TABLET PO SCH (08:10)
[2019-02-27] MEDS: DOCUSATE SODIUM 100 MG CAPSULE PO SCH (08:10)
[2019-02-27] MEDS: LANSOPRAZOLE ODT 30 MG TABLET PO SCH (08:10)
[2019-02-27] MEDS: BENZTROPINE 1 MG TABLET PO SCH (08:10)
[2019-02-27] MEDS: VALPROIC ACID 250 MG/5 ML UDCUP PO SCH (08:10)
[2019-02-27] MEDS: COLLAGENASE OINT 30 GM TUBE TOP SCH (08:11)
[2019-02-27] MEDS ORDERED: ASPIRIN CHEW 81 MG TABLET PO SCH (09:00)
[2019-02-27] MEDS ORDERED: RANITIDINE 150 MG/10 ML 30 ML BOTTLE PEG SCH (09:00)
[2019-02-27] MEDS ORDERED: ASCORBIC ACID 500 MG TABLET PEG SCH (09:00)
[2019-02-27] MEDS ORDERED: SODIUM HYPOCHLORITE 0.25% IRRIG 473 ML BOTTLE TOP SCH (11:00)
[2019-02-27] MEDS: SODIUM CHLORIDE 0.9% 1,000 ML IV SCH (11:08)
[2019-02-27 12:24] VITALS: BP 158/82
== END 2019-02-27 14:00 | DRG 380 ==
LOC: EDBD → N.5E 17:07
PROVIDERS: ADMIT Internal Medicine; ATTEND Internal Medicine